=== PATIENT | female | born 1985 | race Two or more races ===

== ENCOUNTER 2016-07-24 20:03 | Emergency (ER) | payer OTHER ==
[2016-07-24 20:30] VITALS: BP 143/93
[2016-07-24] MEDS ORDERED: ESCI20TA PO (20:39)
[2016-07-24] MEDS ORDERED: ALPR0.5T PO (20:39)
--- NOTE | 2016-07-24 20:50 | ED.ADGEN ---
Adult General HPI HPI Patient is a 31-year-old female presents emergency department complaining of anxiety attack. Patient has a history of anxiety and depression. She was previously on Lexapro is been off that for some time. Last time she required any Xanax was several weeks ago but she is currently out of it. She does have a recent increase in stress including the trigger today of leaving her . Review of Systems Review of Systems Constitutional: Denies fever or chills [] Eyes: Denies change in visual acuity, redness, or eye pain [] HENT: Denies nasal congestion or sore throat [] Respiratory: Denies cough or shortness of breath [] Cardiovascular: No additional information not addressed in HPI [] GI: Denies abdominal pain, nausea, vomiting, bloody stools or diarrhea [] : Denies dysuria or hematuria [] Musculoskeletal: Denies back pain or joint pain [] Integument: Denies rash or skin lesions [] Neurologic: Denies headache, focal weakness or sensory changes [] Endocrine: Denies polyuria or polydipsia [] Current Medications Current Medications Current Medications Medications (Trade) Dose Ordered Sig/Geno Start Time Stop Time Status Last Admin Dose Admin Lorazepam (Ativan) 1 mg 1X ONCE 07/24/16 21:00 07/24/16 21:01 Allergies Allergies Allergies Uncoded Allergies Type Severity Reaction Last Updated Verified tape Allergy Unknown 07/24/16 Physical Exam Physical Exam Constitutional: Well developed, well nourished, no acute distress, non-toxic appearance. [] HENT: Normocephalic, atraumatic, bilateral external ears normal, oropharynx moist, no oral exudates, nose normal. [] Eyes: PERRLA, EOMI, conjunctiva normal, no discharge. [] Neck: Normal range of motion, no tenderness, supple, no stridor. [] Cardiovascular:Heart rate regular rhythm, no murmur [] Lungs & Thorax: Bilateral breath sounds clear to auscultation [] Abdomen: Bowel sounds normal, soft, no tenderness, no masses, no pulsatile masses. [] Skin: Warm, dry, no erythema, no rash. [] Back: No tenderness, no CVA tenderness. [] Extremities: No tenderness, no cyanosis, no clubbing, ROM intact, no edema. [] Neurologic: Alert and oriented X 3, normal motor function, normal sensory function, no focal deficits noted. [] Psychologic: Affect normal, judgement normal, mood anxious [] EKG EKG [] Radiology/Procedures Radiology/Procedures [] Course & Med Decision Making Course & Med Decision Making Pertinent Labs and Imaging studies reviewed. (See chart for details) I did give her dose of Ativan here in emergency department. I discharged her home with prescription for Xanax and Lexapro. She is to follow-up with her primary care physician in 2-3 days return emergency department sooner she develops new or worsening symptoms. [] Final Impression Final Impression Anxiety [] Problems: Dragon Disclaimer Dragon Disclaimer This electronic medical record was generated, in whole or in part, using a voice recognition dictation system. VAZQUEZ LIRIANO MD Jul 24, 2016 20:50
[2016-07-24] MEDS ORDERED: LORAZEPAM 1 MG TABLET. PO ONE (21:00)
== END 2016-07-24 20:55 | disposition home or self-care (01) ==
LOC: ER 20:09
DX: F41.9 Anxiety disorder, unspecified (principal); F32.9 Major depressive disorder, single episode, unspecified; Z91.048 Other nonmedicinal substance allergy status
CPT/HCPCS: 99284

== ENCOUNTER 2017-02-14 10:24 | Emergency (ER) | payer OTHER ==
[~2017-02-14] VITALS: Ht 172.7 cm; Wt 81.6 kg
[~2017-02-14 10:24] MED LIST: ALPR0.5T PO; ESCITALOPRAM OX20 MG PO
[2017-02-14] MEDS ORDERED: LIDO:MAALOX 1:1 20 ML SINGLE DOSE PO ONE (11:20)
[2017-02-14] MEDS ORDERED: ALPRAZolam 0.25 MG TABLET PO ONE (11:20)
[2017-02-14] MEDS ORDERED: ONDANSETRON ODT 4 MG TAB.RAPDIS PO ONE (11:30)
[2017-02-14 11:40] LABS: BILIRUBIN,URINE MOD (NEG); CLARITY,URINE TURBID; COLOR,URINE AMBER; GLUCOSE,URINE NEG (NEG)
[2017-02-14 11:41] LABS: BACTERIA,URINE MANY /HPF (0-FEW); NITRITE,URINE NEG (NEG); SQUAMOUS EPITHELIAL CELL,UR MOD /LPF; UROBILINOGEN,URINE 2 mg/dL (0.2 mg/dL); WBC,URINE >40 /HPF (0-4)
--- NOTE | 2017-02-14 11:50 | PHYS DOC ---
General Chief Complaint: CHEST PAIN Stated Complaint: ABD/CHEST/ARM PAIN Time Seen by MD: 10:59 Source: patient, family Exam Limitations: no limitations Problems: History of Present Illness Initial Comments Patient is a 32-year-old female who arrives with family in severe distress with what she states is a panic attack. Patient states she has severe GERD which is exacerbated by her panic attacks. She is currently complaining of severe epigastric pain described as burning, she has burning radiation of her anterior chest with a metallic taste and has had one episode of nonbloody emesis. She also denies any history of coffee- ground emesis or upper GI bleed. She is hyperventilating on arrival in severe distress due to what she is calling a panic attack, she complaining of lip and fingers tingling and numbness. She denies any true chest pain shortness of breath diaphoresis arm or neck discomfort. Her only coronary artery disease risk is tobaccoism. Denies family history of coronary artery disease. She is coached to slow her breathing by the RN are on arrival and receives Xanax 1 mg by mouth as well as a GI cocktail and Zofran IV. Shortly after receiving his medications he pulled out her IV she states this was accidental. Her symptoms were greatly reduced with the aforementioned medications and she calmed down her vital signs in the emergency department were stable. Although she denies any substance abuse the patient's mother offers that she drinks alcohol in great quantities daily. She is repeatedly requesting pain medications and at one time raises her voice exclaiming "can't I just get some fucking pain medication." She was asked to limit the profanity. Timing/Duration: other (last night around midnight) Severity: severe Modifying Factors: improves with medication Associated Symptoms: nausea/vomiting, shortness of breath, other Allergies: Uncoded Allergies: tape (Allergy, Unknown, 07/24/16) Past Medical History Medical History: other (anxiety, depression, severe GERD) Surgical History: noncontributory Social History Smoker: cigarettes Alcohol: other (denies use, however family claims she uses daily) Drugs: other (denies) Review of Systems Constitutional: denies chills, denies diaphoresis, denies fever, denies malaise Respiratory: denies cough, shortness of breath, denies wheezing Cardiovascular: chest pain, denies palpitations, denies syncope Gastrointestinal: see HPI Genitourinary: denies dysuria, denies frequency, denies hematuria Musculoskeletal: denies back pain, denies joint swelling, denies neck pain Psychiatric/Neurological: see HPI, denies headache, denies numbness, denies paresthesia Physical Exam General Appearance: WD/WN, severe distress (inappropriate, slurs) Eyes: bilateral eye PERRL, bilateral eye EOMI, bilateral eye other ( conjunctivae injected) Ear, Nose, Throat: hearing grossly normal, normal ENT inspection, normal pharynx Neck: non-tender, supple Respiratory: chest non-tender, lungs clear, normal breath sounds Cardiovascular: normal peripheral pulses, regular rate, rhythm Gastrointestinal: normal bowel sounds, non tender, soft, no organomegaly Back: no CVA tenderness, no vertebral tenderness Extremities: non-tender, normal inspection 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 Urinalysis grossly positive for products of infection culture sent. Urine drug screen negative, alcohol level is 42 I discussed findings with the patient and she requests immediate discharge once she finds out no further pain medications in the form of opiates will be given due to her intoxication. I discussed substance abuse and advised her to seek help. Rocephin IM given to ensure that she didn't throw it up and Bactrim DS/ Pyridium prescriptions were given. She left with someone driving her home. Departure Time of Disposition: 12:22 Disposition: 01 HOME, SELF-CARE Diagnosis: Alcohol Intoxication, UTI, Anxiety, GERD Condition: IMPROVED Patient Instructions: Alcohol Intoxication, [id number], Alcoholic Gastritis- Brief, Urinary Tract Infection, [id number] Additional Instructions: Discontinue alcohol abuse, seeking medical assistance if necessary. Alcoholics Anonymous, 21 meetings in 21 days. [place] diet, avoid fried, fatty, spicy, tobacco, and alcohol. Aggressive hydration with Gatorade or water. No driving or operating machinery while intoxicated. Follow-up with your doctor regarding anxiety and treatment thereof. Prescription: Bactrim DS, Pyridium, Zofran ODT Follow-up with your doctor in 7-10 days for recheck and urine culture results. Return to ED with new or changing symptoms. VERN TRUJILLO DO Feb 14, 2017 11:50
[2017-02-14 12:10] LABS: AMPHETAMINE/METHAMPHETAMINE NEG (NEG); BARBITURATES NEG (NEG); BENZODIAZEPINES NEG (NEG); COCAINE NEG (NEG)
[2017-02-14 12:11] LABS: CANNABINOIDS NEG (NEG); METHADONE NEG (NEG); OPIATES NEG (NEG); PHENCYCLIDINE NEG (NEG)
[2017-02-14] MEDS ORDERED: cefTRIAXone IM 1 GM VIAL IM ONE (12:30)
[2017-02-14] MEDS ORDERED: PHENAZOPYRIDINE 100 MG TABLET. PO ONE (12:30)
[2017-02-14 12:36] VITALS: BP 142/85
--- NOTE | 2017-02-14 22:43 | EKG ---
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
== END 2017-02-14 12:50 | disposition home or self-care (01) ==
LOC: ER 10:24
DX: F10.129 Alcohol abuse with intoxication, unspecified (principal); N39.0 Urinary tract infection, site not specified; F41.9 Anxiety disorder, unspecified; K21.9 Gastro-esophageal reflux disease without esophagitis; F32.9 Major depressive disorder, single episode, unspecified; F17.210 Nicotine dependence, cigarettes, uncomplicated; Z91.048 Other nonmedicinal substance allergy status
CPT/HCPCS: 36415; 80307; 81001; 81025; 87086; 93005; 96372; 99285; G0480; J0696; Q0162; G0479

== ENCOUNTER 2020-08-07 00:09 | Observation (INO) | payer BC, OTHER ==
[~2020-08-07] VITALS: Ht 172.7 cm; Wt 99.5 kg
--- NOTE | 2020-08-07 00:32 | PHYS DOC ---
Past History Past Medical History: Alcoholism, Anxiety, Depression, Ovarian Cyst, Pancreatitis Past Surgical History: Past Surgical History Pancreatic stent placement -July 2020 Smoking: Cigarettes Alcohol Use: Sober Drug Use: None General Adult EDM: Chief Complaint: HYPERGLYCEMIA HPI: HPI: ".. I have a hx of chronic pancreatitis ..and getting obstructive stones..it all started after a depression episode.. and about 3 year binge on alcohol use.... I have not drank for over 2 years... But I have had pancreas problems ever since... About 2 weeks ago they placed a stent in my pancreas.. Down at [facility] on the [address]... After that stent placement.. I developed diabetes or hyperglycemia because of the inflammation... And since that time have been having trouble with high blood sugars... The insurance company would not fill my lispro.. Because the way these prescription was written ... I have not been able to keep my sugars controlled by diet..." Patient is a 35 year old female who presents with above hx and complaints of hyperglycemia after a stenting of her pancreas 2 weeks ago. Patient is a longstanding history of chronic pancreatitis after a period of heavy alcohol use. Patient does not use alcohol for the last 2 years. Patient denies any other illicit drugs. Patient normally follows at [facility] endocrinology. Patient also follows with primary care [place]. Patient has past medical history of atypical chest pain, panic attacks, GERD, GI bleeds, alcohol abuse and pancreatitis. Patient denies any history immunosuppression. No history of travel. No history of specific ill contacts. No history of trauma. Patient normally follows with in the endocrine clinic at [facility]. No recent fever or chills. Patient does continue to smoke. Review of Systems: Review of Systems: Constitutional: Denies fever or chills Eyes: Denies change in visual acuity HENT: Denies nasal congestion or sore throat Respiratory: Denies cough or shortness of breath Cardiovascular: Denies chest pain or edema GI: Complains of moderate mid abdominal pain, nausea,. Denies vomiting, bloody stools or diarrhea : Denies dysuria Musculoskeletal: Denies back pain or joint pain Integument: Denies rash Neurologic: Denies headache, focal weakness or sensory changes Endocrine: Complains of polyuria or polydipsia Lymphatic: Denies swollen glands Psychiatric: History of depression and anxiety Family History: Family History: Noncontributory to presentation Current Medications: Current Meds: See nursing for home meds Allergies: Allergies: Allergies Uncoded Allergies Type Severity Reaction Last Updated Verified tape Allergy Unknown 07/24/16 Physical Exam: PE: Constitutional: Moderate acute distress, non-toxic appearance. [] HENT: Normocephalic, atraumatic, bilateral external ears normal, oropharynx dry, no oral exudates, nose normal. [] Eyes: PERRLA, EOMI, conjunctiva normal, no discharge. [] Neck: Normal range of motion, no tenderness, supple, no stridor. [] Cardiovascular: Tachycardia heart rate regular rhythm, no murmur [] Lungs & Thorax: Bilateral breath sounds equal apex with scattered wheezes on auscultation [] Abdomen: Bowel sounds decreased, soft, epigastric to mid abdomen with right upper quadrant tenderness, no masses, no pulsatile masses. [] Rebound to mid abdomen and epigastric area. Old surgery scar. Skin: Warm, dry, no erythema, no rash. Poor turgor Back: No tenderness, no CVA tenderness. [] Extremities: No tenderness, no cyanosis, no clubbing, ROM intact, no edema. [] Neurologic: Alert and oriented X 3, Pt. moves all extremities on request, does have distal sensory,, no focal deficits noted. [] Psychologic: Affect anxious, judgement normal, mood depressed. No suicidal ideation. EKG: EKG: My interpretation EKG shows a sinus rhythm at 96 bpm. Does have some bimodal P waves in the left leads. Does have leftward axis. Does have a right bundle branch block. Abnormal EKG however no findings acute STEMI of contralateral changes. [] Radiology/Procedures: Radiology/Procedures: [][address] [address] IMAGING REPORT Signed PATIENT: OPHELIA DAVIS AACCOUNT: [id number] : 1985 LOCATION: ER AGE: 35 SEX: F EXAM STATUS: REG ER ORD. PHYSICIAN: LAVELL ANTHONY MD REASON: pain PROCEDURE: ACUTE ABDOMEN SERIES XR ABDOMEN COMP ACUTE History: Reason: pain / Spl. Instructions: / History: Technique: Upright and supine views the abdomen. Comparison: None. Findings: No consolidation or pleural effusion. Normal heart size. No pneumothorax. No pneumoperitoneum. TIPS stent noted. Surgical clips right upper quadrant. A potential pancreatic duct stent noted. Mild small bowel gas. Air and stool throughout the colon. Large proximal colonic stool burden. Impression: 1. Nonobstructed bowel gas pattern. 2. Large colonic stool burden. 3. Potential pancreatic duct stent. Recommend correlation with surgical history. Electronically signed by: Yifan Garcia DO (08/07/2020 1:53 AM) [facility] DICTATED AND SIGNED BY: YIFAN GARCIA DO DATE: 08/07/20150 CC: LAVELL ANTHONY MD; VINNIE TEAGUE ~MTH0 0 Heart Score: C/O Chest Pain: N/A HEART Score for Chest Pain: HEART Score for Chest Pain Response (Comments) Value History Moderately Suspicious 1 ECG Nonspecific Repolarizatio 1 Age < 45 0 Risk Factors 1 or 2 Risk Factors 1 Troponin < Normal Limit 0 Total 3 Risk Factors: Risk Factors: DM, Current or recent (<one month) smoker, HTN, HLP, family history of CAD, obesity. Risk Scores: Score 0 - 3: 2.5% MACE over next 6 weeks - Discharge Home Score 4 - 6: 20.3% MACE over next 6 weeks - Admit for Clinical Observation Score 7 - 10: 72.7% MACE over next 6 weeks - Early Invasive Strategies Course & Med Decision Making: Course & Med Decision Making Pertinent Labs and Imaging studies reviewed. (See chart for details) Discussed presentation, testing and treatment plan with . Requests patient be admitted to his service and placed on glucose commander protocol. Impression: 1. Past history of alcohol abuse= alcohol level 0 at this admission 2. History of chronic pancreatitis 3. Diabetes =glucose 608 Gap 10 4. Dehydration 5. History of anxiety 6. History of depression [] Dragon Disclaimer: Dragon Disclaimer: This electronic medical record was generated, in whole or in part, using a voice recognition dictation system. Departure Departure: Referrals: VINNIE TEAGUE (PCP) Vee Disclaimer This chart was dictated in whole or in part using Voice Recognition software in a busy, high-work load, and often noisy Emergency Department environment. It may contain unintended and wholly unrecognized errors or omissions. LAVELL ANTHONY MD Aug 07, 2020 00:32
[2020-08-07] MEDS ORDERED: INSULIN REGULAR 100 UNIT/ML 3ML VIAL. IV ONE (01:00)
[2020-08-07] MEDS ORDERED: FAMOTIDINE 20 MG/2 ML VIAL IVP ONE (01:00)
[2020-08-07] MEDS ORDERED: INSULIN REGULAR VIAL 100 UNIT in IV NORMAL SALINE 100ML 100 ML IV ONE ×2 (01:00→11:00)
[2020-08-07] MEDS ORDERED: ONDANSETRON PF 4 MG/2 ML VIAL. IVP ONE (01:00)
[2020-08-07] MEDS ORDERED: IV NORMAL SALINE 1,000ML 1,000 ML IV SCH ×2 (01:00→03:30)
[2020-08-07] MEDS ORDERED: KETOROLAC 30 MG/ML VIAL. IVP ONE (01:00)
[2020-08-07 01:15] LABS: BASO % 1 % (0-3); EOS # 0.1 x10^3/uL (0.0-0.7); EOS % 1 % (0-3); HEMATOCRIT 44.7 % (36.0-47.0); LYMPH # 1.8 x10^3/uL (1.0-4.8); LYMPH % 28 % (24-48); MEAN CORPUSCULAR HEMOGLOBIN 31 pg (25-35); MEAN CORPUSCULAR HGB CONC 34 g/dL (31-37); MEAN CORPUSCULAR VOLUME 91 fL (79-100); MONO # 0.4 x10^3/uL (0.0-1.1); MONO % 7 % (0-9); NEUT # 4.1 x10^3uL (1.8-7.7); NEUT % 64 % (31-73); PLATELET COUNT 124 x10^3/uL (140-400); RED BLOOD COUNT 4.89 x10^6/uL (3.50-5.40); RED CELL DISTRIBUTION WIDTH 13.9 % (11.5-14.5); WHITE BLOOD COUNT 6.5 x10^3/uL (4.0-11.0)
[2020-08-07] MEDS ORDERED: IV NORMAL SALINE 100ML 100 ML ONE (01:15)
[2020-08-07 01:23] LABS: BILIRUBIN,URINE NEG (NEG); CLARITY,URINE CLEAR; COLOR,URINE YELLOW; GLUCOSE,URINE >=1000 mg/dL (NEG); NITRITE,URINE NEG (NEG)
[2020-08-07 01:24] LABS: BACTERIA,URINE 0 /HPF (0-FEW); SQUAMOUS EPITHELIAL CELL,UR FEW /LPF; WBC,URINE OCC /HPF (0-4)
[2020-08-07 01:28] LABS: AMPHETAMINE/METHAMPHETAMINE NEG (NEG); BARBITURATES NEG (NEG); BENZODIAZEPINES NEG (NEG); CANNABINOIDS NEG (NEG); COCAINE NEG (NEG); METHADONE NEG (NEG); OPIATES NEG (NEG); PHENCYCLIDINE NEG (NEG)
[2020-08-07 01:44] LABS: ALBUMIN 3.4 g/dL (3.4-5.0); CALCIUM 9.5 mg/dL (8.5-10.1); CREATININE 0.9 mg/dL (0.6-1.0); DIRECT BILIRUBIN 0.1 mg/dL (0.0-0.2); GFR 71.3; POTASSIUM 4.6 mmol/L (3.5-5.1); TOTAL BILIRUBIN 0.5 mg/dL (0.2-1.0); TOTAL PROTEIN 8.7 g/dL (6.4-8.2)
--- NOTE | 2020-08-07 01:56 | RAD ---
XR ABDOMEN COMP ACUTE History: Reason: pain / Spl. Instructions: / History: Technique: Upright and supine views the abdomen. Comparison: None. Findings: No consolidation or pleural effusion. Normal heart size. No pneumothorax. No pneumoperitoneum. TIPS s tent noted. Surgical clips right upper quadrant. A potential pancreatic duct stent noted. Mild small bowel gas. Air and stool throughout the colon. Large proximal colonic stool burden. Impression: 1. Nonobstructed bowel gas pattern. 2. Large colonic stool burden. 3. Potential pancreatic duct stent. Recommend correlation with surgical history. Electronically signed by: Yifan Garcia DO (08/07/2020 1:53 AM) [facility]
[2020-08-07] MEDS ORDERED: IV RINGERS SOLUTION,LACTATED 1,000 ML IV ONE (02:15)
[2020-08-07] MEDS ORDERED: ACETAMINOPHEN 325 MG TABLET PO PRN (02:15)
[2020-08-07] MEDS ORDERED: IV NORMAL SALINE 1,000ML 1,000 ML IV ONE (02:15)
[2020-08-07] MEDS ORDERED: ONDANSETRON PF 4 MG/2 ML VIAL. IVP PRN (02:15)
--- NOTE | 2020-08-07 02:36 | NUR ---
The patient, OPHELIA DAVIS, 35 y/o, F admitted by DANY KAHN MD, was given written information regarding hospital policies, unit procedures and contact persons. Valuables were checked and logged. Pt is concerned about her kids during her stay since it is easter today. Pt is wanting to go home and states, "I am hopefully going to go home today." Call light at bedside. Will continue to monitor.
[2020-08-07 02:57] VITALS: BP 162/93
[2020-08-07] MEDS: MORPHINE SULFATE 4 MG/ML DISP.SYRIN. IV PRN ×3 (03:38→09:26)
--- NOTE | 2020-08-07 06:25 | EKG ---
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
[2020-08-07] MEDS ORDERED: VENL37.5 PO (06:46)
[2020-08-07] MEDS ORDERED: HYDR2TAB31 PO (06:46)
[2020-08-07] MEDS ORDERED: PANT40TA3 PO (06:46)
[2020-08-07] MEDS ORDERED: INSU100I13 SQ (06:46)
[2020-08-07] MEDS ORDERED: LIPA1CAP4 PO (06:46)
[2020-08-07] MEDS ORDERED: RIFA550T4 PO (06:46)
[2020-08-07] MEDS ORDERED: TRAZ300T2 PO (06:46)
[2020-08-07] MEDS ORDERED: GABA-586 PO (06:46)
[2020-08-07] MEDS ORDERED: MIRT30TA3 PO (06:46)
[2020-08-07] MEDS ORDERED: LIDO700A21 TP (06:46)
[2020-08-07 09:16] VITALS: BP 92/52
--- NOTE | 2020-08-07 12:19 | HP ---
ADMIT DATE: 08/07/2020 ATTENDING PHYSICIAN: Dr. Kahn. CHIEF COMPLAINT: High blood sugars. HISTORY OF PRESENT ILLNESS: The patient is a 35-year-old female with known pancreatic insufficiency. Recently, she had a pancreatic stent placed for recurrent stones. She has been on Creon. There is a remote history of binge drinking several years ago; she has quit drinking. She was prescribed insulin, Humalog and Lantus. Unfortunately, she was unable to get it filled due to insurance purposes. Therefore, on admission, her sugar was 600. She was tired. She had a dry mouth and polyuria. Amazingly, her anion gap was actually adequate. She was admitted with uncontrolled diabetes. PAST MEDICAL HISTORY: Significant for chronic alcoholism. She has pancreatic insufficiency, underlying depression along with gastroesophageal reflux disease and chronic pain syndrome. CURRENT MEDICATIONS: Includes Neurontin 300 mg t.i.d., Dilaudid 2 mg tablets, Ultram, venlafaxine, trazodone, Xifaxan, Protonix, Remeron, Creon and Lidoderm patch along with her regular and Lantus insulin. ALLERGIES: SHE HAS MULTIPLE ALLERGIES INCLUDE ADHESIVE TAPE, FENTANYL, SULFAMETHOXAZOLE, TRIMETHOPRIM AND VANCOMYCIN; REACTION IS UNCLEAR, WHETHER THE VANCOMYCIN IS THE TRUE ALLERGY REMAINS TO BE SEEN. SOCIAL HISTORY: She is a nonsmoker. She has since quit drinking. FAMILY HISTORY: Parents are alive. She is ; has 2 children, a son age 10 with a daughter age 8 in good health. She is currently at home. She is in the process of getting back to the work force. REVIEW OF SYSTEMS: Significant for some polyuria and polydipsia. No COVID exposure. Mild nausea, no vomiting. Pain is manageable with Ultram. All other systems reviewed and turned to be negative. PHYSICAL EXAMINATION: GENERAL: When I saw her, this is a pleasant, alert, young female. INITIAL VITAL SIGNS: Showed a blood pressure 144/83, pulse is 103 and regular, temperature 98.9 degrees Fahrenheit, oxygen saturation 98% on room air. HEENT: Head is without trauma. Pupils are reactive. Sclerae nonicteric. Oropharynx is clear. NECK: Supple, no bruits identified. LUNGS: Clear to auscultation. CARDIOVASCULAR: Showed regular heart tones. No gallops. ABDOMEN: Soft. EXTREMITIES: Without edema. NEUROLOGIC FINDINGS: Focally intact. SKIN: Warm and dry. LABORATORY STUDIES: Admission blood sugar was 608 mg/dL, anion gap was only 10, bicarbonate 23. Creatinine was 0.9 mg/dL. Transaminases are normal. Hemoglobin 15.0 g/dL with white count of 6500. ASSESSMENT: 1. A 35-year-old female with pancreatic insufficiency. 2. Insulin-dependent diabetes with poorly controlled sugars. 3. Noncompliance of meds. 4. Chronic pain syndrome. 5. Pancreatic insufficiency. 6. Remote history of chronic alcoholism. 7. Underlying depression. PLAN: 1. Observation status admission. 2. Initial glucose stabilizer protocol initiated. 3. Advance diet as tolerated. 4. Serial chemistries. DANY KAHN MD DR: NANETTE/jeanne JOB#: [id number] / [id number] VINNIE Ayala
--- NOTE | 2020-08-07 14:42 | DS ---
DATE OF DISCHARGE: 08/07/2020 ATTENDING PHYSICIAN: Dr. Kahn. FINAL DISCHARGE DIAGNOSES: 1. Uncontrolled diabetes due to noncompliance of meds. 2. Insulin diabetes mellitus. 3. Pancreatic insufficiency. 4. Remote history of chronic alcoholism. 5. Underlying depression with anxiety. 6. Mild dehydration, resolved. HISTORY OF PRESENT ILLNESS: The patient is a 35-year-old female with a complicated history. She has had pancreatic insufficiency, recently diagnosed with type 2 diabetes. She was prescribed Humalog insulin Lantus. She has not been able to get it filled. Sugars were elevated. On admission, her blood sugar was 608 mg/dL. Polyuria and polydipsia was identified. No recent COVID exposure. She was not acidotic. Her bicarbonate level was 23 with a gap of 10. She was admitted then for management of blood sugars. PHYSICAL EXAMINATION: Please see the dictated note. PERTINENT LABORATORY AND X-RAY STUDIES: Admission blood sugar 608 mg/dL. Subsequent sugars came down to 224, 182, 100, 103 and 115 respectively. Urinalysis was clear, greater than 1000 glucose. Toxicology screen was negative. Ethyl alcohol level is normal. Hemoglobin maintained at 15.0 g/dL with a white count of 6500. Creatinine was 0.9 mg/dL. COURSE IN THE HOSPITAL: The patient was admitted. She was started on glucose stabilizer, then switched to Accu-Cheks, sliding scale and IV hydration. She did well. Sugars came down to the low 100s. Her diet was advanced. She was eating some solid foods without any nausea. She was ready for discharge. At this time, I wrote her scripts for Humalog insulin. She is instructed to count her carbohydrates and administer Humalog prior to each meal and 30 units of Lantus at bedtime. Other home meds are unchanged, they include the following: She should continue her Neurontin, insulin, pancreatic enzyme in the form of Creon, Remeron, Protonix, Xifaxan, trazodone and Effexor doses unchanged. I did write her a script for some extra Ultram 100 mg p.o. q.6 p.r.n. She will follow up with Halina Betancourt next week. She will be calling her for an appointment. She was discharged then from our hospital in stable condition with explicit instructions and followup care. DANY KAHN MD DR: NANETTE/jeanne JOB#: [id number] / [id number] HALINA Ayala
== END 2020-08-07 09:35 | disposition home or self-care (01) ==
LOC: ER 00:09 → 1 SOUTH 02:29 → INTOOBSV 02:29
PROVIDERS: ADMIT Hospitalist; ATTEND Hospitalist
DX: K86.89 Other specified diseases of pancreas (principal); E11.65 Type 2 diabetes mellitus with hyperglycemia; G89.4 Chronic pain syndrome; E86.0 Dehydration; F10.20 Alcohol dependence, uncomplicated; F41.9 Anxiety disorder, unspecified; F32.9 Major depressive disorder, single episode, unspecified; K21.9 Gastro-esophageal reflux disease without esophagitis; F17.210 Nicotine dependence, cigarettes, uncomplicated; Z91.14 Patient's other noncompliance with medication regimen; Z87.442 Personal history of urinary calculi; Z79.4 Long term (current) use of insulin; Z98.891 History of uterine scar from previous surgery; Z98.890 Other specified postprocedural states
CPT/HCPCS: 36415; 74022; 80048; 80076; 80307; 81001; 81025; 82150; 82550; 82947; 83690; 84484; 85025; 85610; 85730; 93005; 96365; 96375; 96376; 99285; G0378; G0480; J1815; J1885; J2270; J2405; J7030; 96361; 96366; 96374; G0379

== ENCOUNTER 2020-10-11 22:35 | Observation (INO) | payer BC ==
[~2020-10-11] VITALS: Ht 172.7 cm; Wt 101.7 kg
[~2020-10-11 22:35] MED LIST changes: +GABA-586 PO; +HYDR2TAB31 PO; +INSU100I13 SQ; +LIDO700A21 TP; +LIPA1CAP4 PO; +MIRT-8 PO; +PANT40TA3 PO; +RIFA550T4 PO; +TRAZ300T2 PO; +VENL37.5 PO
--- NOTE | 2020-10-11 22:38 | PHYS DOC ---
Past History Past Medical History: Alcoholism, Anxiety, Depression, Ovarian Cyst, Pancreatitis Additional Past Medical Histor: LIVER DISEASE Past Surgical History: Additional Past Surgical Histo: PANCREATIC STENTS, LYPHMECTOMY Smoking: Cigarettes Alcohol Use: Sober Drug Use: None General Adult EDM: Chief Complaint: HYPERTENSION HPI: HPI: Patient is a 35 year old female who presents with above hx and complaints of hypertension Review of Systems: Review of Systems: Constitutional: Denies fever or chills Eyes: Denies change in visual acuity HENT: Denies nasal congestion or sore throat Respiratory: Denies cough or shortness of breath Cardiovascular: Denies chest pain or edema GI: Denies abdominal pain, nausea, vomiting, bloody stools or diarrhea : Denies dysuria Musculoskeletal: Denies back pain or joint pain Integument: Denies rash Neurologic: Denies headache, focal weakness or sensory changes Endocrine: Denies polyuria or polydipsia Lymphatic: Denies swollen glands Psychiatric: Denies depression or anxiety Allergies: Allergies: Allergies Coded Allergies Type Severity Reaction Last Updated Verified adhesive tape Allergy Intermediate 08/07/20 Yes fentanyl Allergy Unknown 08/07/20 Yes sulfamethoxazole Allergy Unknown 08/07/20 Yes trimethoprim Allergy Unknown 08/07/20 Yes vancomycin Allergy Unknown 08/07/20 Yes Physical Exam: PE: Constitutional: Well developed, well nourished, no acute distress, non-toxic appearance. [] HENT: Normocephalic, atraumatic, bilateral external ears normal, oropharynx moist, no oral exudates, nose normal. [] Eyes: PERRLA, EOMI, conjunctiva normal, no discharge. [] Neck: Normal range of motion, no tenderness, supple, no stridor. [] Cardiovascular:Heart rate regular rhythm, no murmur [] Lungs & Thorax: Bilateral breath sounds clear to auscultation [] Abdomen: Bowel sounds normal, soft, no tenderness, no masses, no pulsatile masses. [] Skin: Warm, dry, no erythema, no rash. [] Back: No tenderness, no CVA tenderness. [] Extremities: No tenderness, no cyanosis, no clubbing, ROM intact, no edema. [] Neurologic: Alert and oriented X 3, normal motor function, normal sensory function, no focal deficits noted. [] Psychologic: Affect normal, judgement normal, mood normal. [] EKG: EKG: [] Radiology/Procedures: Radiology/Procedures: [] Heart Score: Risk Factors: Risk Factors: DM, Current or recent (<one month) smoker, HTN, HLP, family history of CAD, obesity. Risk Scores: Score 0 - 3: 2.5% MACE over next 6 weeks - Discharge Home Score 4 - 6: 20.3% MACE over next 6 weeks - Admit for Clinical Observation Score 7 - 10: 72.7% MACE over next 6 weeks - Early Invasive Strategies Course & Med Decision Making: Course & Med Decision Making Pertinent Labs and Imaging studies reviewed. (See chart for details) [] Dragon Disclaimer: Dragon Disclaimer: This electronic medical record was generated, in whole or in part, using a voice recognition dictation system. Departure Departure: Referrals: VINNIE TEAGUE (PCP) LAVELL ANTHONY MD Oct 11, 2020 22:38
[2020-10-11] MEDS ORDERED: CONTRAST GIVEN. MC PRN (23:15)
[2020-10-11] MEDS ORDERED: IOHEXOL 240 MG/ML 50ML VIAL. ONE (23:21)
[2020-10-11] MEDS ORDERED: IOHEXOL 300 MG/ML 75 ML VIAL. IV ONE (23:30)
[2020-10-11] MEDS ORDERED: ONDANSETRON PF 4 MG/2 ML VIAL. IVP ONE (23:30)
[2020-10-11] MEDS ORDERED: IV RINGERS SOLUTION,LACTATED 1,000 ML IV SCH (23:30)
[2020-10-11] MEDS ORDERED: INSULIN REGULAR VIAL 100 UNIT in IV NORMAL SALINE 100ML 100 ML IV ONE (23:30)
[2020-10-11] MEDS ORDERED: KETOROLAC 30 MG/ML VIAL. IVP ONE (23:30)
[2020-10-11] MEDS ORDERED: FAMOTIDINE 20 MG/2 ML VIAL IVP ONE (23:30)
[2020-10-11] MEDS ORDERED: INSULIN REGULAR 100 UNIT/ML 3ML VIAL. IV ONE (23:30)
[2020-10-11] MEDS ORDERED: IV NORMAL SALINE 1,000ML 1,000 ML IV SCH (23:30)
[2020-10-12 00:03] LABS: BASO % 0 % (0-3); EOS # 0.1 x10^3/uL (0.0-0.7); EOS % 1 % (0-3); HEMATOCRIT 38.4 % (36.0-47.0); LYMPH # 1.4 x10^3/uL (1.0-4.8); LYMPH % 23 % (24-48); MEAN CORPUSCULAR HEMOGLOBIN 31 pg (25-35); MEAN CORPUSCULAR HGB CONC 34 g/dL (31-37); MEAN CORPUSCULAR VOLUME 90 fL (79-100); MONO # 0.4 x10^3/uL (0.0-1.1); MONO % 6 % (0-9); NEUT # 4.5 x10^3uL (1.8-7.7); NEUT % 70 % (31-73); PLATELET COUNT 100 x10^3/uL (140-400); RED BLOOD COUNT 4.26 x10^6/uL (3.50-5.40); RED CELL DISTRIBUTION WIDTH 13.7 % (11.5-14.5); WHITE BLOOD COUNT 6.4 x10^3/uL (4.0-11.0)
[2020-10-12 00:06] LABS: U PREG PATIENT NEGATIVE (NEG)
--- NOTE | 2020-10-12 00:10 | EKG ---
[address] [address] Test Date: 2020-10-11 Test Time: 23:10:20 Pat Name: OPHELIA DAVIS Department: Room: Gender: F [employer]: : 1985 Requested By: LAVELL ANTHONY Order Number: [id number] Reading MD: Measurements Intervals [place] Rate: 97 P: 18 MN: 132 QRS: 13 QRSD: 94 T: 34 QT: 348 QTc: 446 Interpretive Statements SINUS RHYTHM NORMAL ECG RI6.02 No previous ECG available for comparison
[2020-10-12 00:13] LABS: CALCIUM 9.1 mg/dL (8.5-10.1); CREATININE 0.9 mg/dL (0.6-1.0); GFR 71.3; POTASSIUM 3.4 mmol/L (3.5-5.1)
[2020-10-12 00:17] LABS: ALBUMIN 3.3 g/dL (3.4-5.0); DIRECT BILIRUBIN 0.1 mg/dL (0.0-0.2); TOTAL BILIRUBIN 0.4 mg/dL (0.2-1.0)
--- NOTE | 2020-10-12 00:45 | RAD ---
XR ABDOMEN COMP ACUTE History: Reason: Abdomen pain / Spl. Instructions: / History: Technique: Upright and supine views of the abdomen. Comparison: August 07, 2020 Findings: No consolidation or pleural effusion. Normal heart size. No pneumothorax. No pneumoperitoneum. TIPS stent noted. Pancreatic stents noted. Surgical clips right upper quadrant. Mild small bowel gas. Air and stool throughout the colon. Mild colonic stool burden. Moderate pubic symphysis DJD. Impression: 1. Nonobstructed bowel gas pattern. Electronically signed by: Yifan Garcia DO (10/12/2020 12:42 AM) [facility]
[2020-10-12 00:48] LABS: BACTERIA,URINE 0 /HPF (0-FEW); BILIRUBIN,URINE NEG (NEG); CLARITY,URINE CLEAR; COLOR,URINE YELLOW; GLUCOSE,URINE >=1000 mg/dL (NEG); NITRITE,URINE NEG (NEG); RBC,URINE 0 /HPF (0-2); SQUAMOUS EPITHELIAL CELL,UR OCC /LPF; UROBILINOGEN,URINE 0.2 mg/dL (0.2 mg/dL)
[2020-10-12 00:49] LABS: WBC,URINE OCC /HPF (0-4)
[2020-10-12 00:52] LABS: BARBITURATES NEG (NEG); BENZODIAZEPINES NEG (NEG); CANNABINOIDS NEG (NEG); COCAINE NEG (NEG); METHADONE NEG (NEG); OPIATES NEG (NEG); PHENCYCLIDINE NEG (NEG)
[2020-10-12 00:53] LABS: AMPHETAMINE/METHAMPHETAMINE NEG (NEG)
[2020-10-12] MEDS ORDERED: MORPHINE SULFATE 10 MG/ML SYRINGE. ONE (01:53)
[2020-10-12 03:45] VITALS: BP 128/82
--- NOTE | 2020-10-12 05:59 | RAD ---
CT ABDOMEN+PELVIS W History: Reason: Abdomen pain, Hx: Liver failure, cholecystectomy Omni 300 75cc / Spl. Instructions: / History: Technique: After the administration of intravenous contrast, CT imaging was performed of the abdomen and pelvis. Multiplanar images are reviewed. Exposure: One or more of the following individualized dose reduction techniques were utilized for thi s examination: 1. Automated exposure control 2. Adjustment of the mA and/or kV according to patient size 3. Use of iterative reconstruction technique. Comparison: None Findings: Lower chest: No consolidation or pleural effusion. Abdomen and pelvis: TIPS stent noted. Hepatomegaly. Enlarged spleen measures 15.8 cm. Prior cholecyst ectomy. The adrenal glands are unremarkable. Posterior gastric fundus diverticulum is noted. Upper ab dominal collateral vessels. Thrombosed right portal vein branches. Patent main portal vein. Pancreatic calcifications. Mild peripancreatic fat stranding. Pancreatic stent noted. No pancreatic d uctal dilatation. No peripancreatic fluid collections. No hydronephrosis. Punctate nonobstructing left inferior renal calculus. Normal appendix. Mid to distal colonic decompression with wall thickening. Multiple small mesenteric and retroperitoneal lymph nodes. Several right ovarian follicles noted. No ascites. No pneumoperitone um. No pneumatosis. No evidence of bowel obstruction. Oral contrast opacifies to the level of the pro ximal small bowel. Bones: No pathologic osseous lesions. Impression: 1. Mild peripancreatic fat stranding with pancreatic calcifications, may represent acute on chronic pancreatitis. Pancreatic stent noted. 2. Right pleural vein branch thrombosis. Patent TIPS stent. 3. Hepatosplenomegaly with upper abdominal varices. 4. Mid to distal colonic wall thickening with nondistention, may relate to passive venous congestion . Correlate for colitis. Electronically signed by: Yifan Garcia DO (10/12/2020 1:55 AM) [facility]
[2020-10-12] MEDS ORDERED: PROCHLORPERAZINE 10 MG/2 ML VIAL. IM PRN (07:00)
[2020-10-12] MEDS ORDERED: PROCHLORPERAZINE 10 MG/2 ML VIAL. IV ONE (07:00)
[2020-10-12] MEDS ORDERED: IV RINGERS SOLUTION,LACTATED 1,000 ML IV SCH (07:00)
[2020-10-12] MEDS ORDERED: DEXTROSE 50% 25 GM / 50ML DISP.SYRIN. IV PRN (07:00)
[2020-10-12] MEDS ORDERED: MORPHINE SULFATE 4 MG/ML DISP.SYRIN. IV PRN ×2 (07:00)
[2020-10-12] MEDS: SUCRALFATE 1 GM TABLET. PO SCH ×2 (07:30→10:39)
[2020-10-12] MEDS ORDERED: INSULIN LISPRO 300 UNITS/3 ML VIAL. SQ SCH (08:00)
[2020-10-12] MEDS ORDERED: FAMOTIDINE 20 MG/2 ML VIAL IVP SCH (09:00)
[2020-10-12] MEDS ORDERED: HYDROmorphone 2 MG TABLET PO PRN (09:15)
--- NOTE | 2020-10-12 09:53 | DS ---
DATE OF DISCHARGE: 10/12/2020 ATTENDING PHYSICIAN: Dr. Osorio FINAL DISCHARGE DIAGNOSES: 1. Abdominal pain. 2. Mild pancreatitis. 3. Chronic pancreatitis. 4. Cirrhosis of the liver. 5. Portal hypertension with varices. 6. History of transjugular intrahepatic portosystemic shunt procedure. 7. Type 2 diabetes. 8. Pancreatic enzyme insufficiency. 9. Remote history of alcoholism. HISTORY AND PHYSICAL: The patient is a 35-year-old female well known to us from previous admissions. She has had chronic pancreatitis. She was admitted with mild symptoms of pancreatitis. CT evidence of pancreatic stranding and inflammation. Ironically amylase and lipase were fairly normal. PHYSICAL EXAMINATION: Please see the dictated note. PERTINENT LABORATORY AND X-RAY STUDIES: Admission CT of the abdomen showed mild peripancreatic stranding, absence of the gallbladder. She has portal hypertension and splenomegaly, no acute findings or obstruction identified. Her hemoglobin was 13.0 g/dL, white count normal at 6400. Chemistry panel unremarkable. Creatinine 0.9 mg/dL. Nonfasting blood sugar 122. Amylase was 29, lipase was 45. Cardiac enzymes were negative for coronary ischemia. COURSE IN THE HOSPITAL: The patient was admitted. She was kept n.p.o., given pain meds and nausea control. She did well. Diet was advanced to full liquids. I recommended a low fat diet for the next 2 days. By the next hospital day, her vital signs were quite stable. She was afebrile. Abdominal exam was benign. She wanted to go home. I felt this is reasonable. I wrote her a script in for Dilaudid 2 mg p.o. q.6 hours p.r.n. pain, #20. Compazine 10 mg every 6 hours p.r.n. pain. Other home meds are unchanged. She should continue her Neurontin, insulin as scheduled, Lidoderm patch, Creon, Remeron, Protonix, Xifaxan, and trazodone and Effexor doses unchanged. She will follow up with Halina Solis as scheduled. The patient was then discharged from our hospital in stable condition with explicit written and followup care. LAKE DR: Mary Ann TID: [id number] CC: SHARI Meza
[2020-10-12] MEDS ORDERED: LIDOCAINE (700MG/PATCH) PATCH. TP PRN (10:00)
[2020-10-12] MEDS ORDERED: rifAXIMin 550 MG TABLET PO SCH (10:00)
[2020-10-12] MEDS ORDERED: GABAPENTIN 300 MG CAPSULE. PO SCH (10:00)
[2020-10-12] MEDS ORDERED: VENLAFAXINE XR 37.5 MG CAP.ER.24H. PO SCH (10:00)
[2020-10-12] MEDS ORDERED: LIPASE/PROTEAS/AMYLAS 10/32/42 CAPSULE.DR. PO SCH (11:30)
[2020-10-12] MEDS ORDERED: IPRATRPIUM/ALBUTEROL 0.5/2.5MG 3 ML NEBU. NEB SCH (12:00)
--- NOTE | 2020-10-12 12:50 | HP ---
ATTENDING PHYSICIAN: ____. CHIEF COMPLAINT: Abdominal pain and nausea. HISTORY OF PRESENT ILLNESS: The patient is a 35-year-old female well known to us from multiple previous admissions. She has a longstanding history of alcoholic cirrhosis, portal hypertension and a previous TIPS procedure, 04/2019. She presented with nonspecific abdominal pain, nausea, some elevated blood pressure. No nausea or bloody stools. No hematemesis. Workup in the ED showed evidence of mild pancreatitis with peripancreatic stranding, though pseudocyst identified. Her white count was normal. Troponins were negative and amylase and lipase were not particularly elevated. She was admitted for further treatment and evaluation. PAST MEDICAL HISTORY: Significant for chronic pancreatitis due to her alcohol use. She has quit drinking, it has been 2 years. PAST SURGICAL HISTORY: She has had a TIPS procedure. She has had a previous cholecystectomy. SOCIAL HISTORY: She is a nonsmoker. CURRENT MEDICATIONS: Include the following: She was on rifaximin, Dilaudid, Neurontin, Remeron, trazodone and Effexor. ALLERGIES: SHE HAS ALLERGIES TO FENTANYL, ADHESIVE TAPE, SULFA DRUGS, TRIMETHOPRIM AND VANCOMYCIN. Exact reaction is unclear. FAMILY HISTORY: Noncontributory. REVIEW OF SYSTEMS: Significant for recent birthday alliance party, she has not drank. She is very straightforward. She denied any recent travel, fevers, chills, hematemesis, bloody stools, black tarry stools. All other systems reviewed and turned to be negative. PHYSICAL EXAMINATION: GENERAL: When I saw her, this is a pleasant young female. INITIAL VITAL SIGNS: Showed a blood pressure of 130 systolic. Pulse is regular. She was afebrile. HEENT: Head is without trauma. Pupils are reactive. Sclerae nonicteric. The oropharynx is clear. NECK: Supple, no bruits identified. LUNGS: Otherwise clear. CARDIOVASCULAR: Showed regular heart tones. No gallops. ABDOMEN: Soft. EXTREMITIES: Without edema. There is no guarding or rebound tenderness. NEUROLOGIC: Function focally intact. SKIN: Warm and dry. Urine drug screen was negative. PERTINENT LABORATORY STUDIES: Hemoglobin 13.0 g/dL. Chemistry panel unremarkable. Creatinine 0.9. Nonfasting blood sugar 122. Amylase 29, lipase 46. Cardiac enzymes were negative. ASSESSMENT: 1. A 35-year-old female with chronic pancreatitis with mild early pancreatitis. 2. History of cirrhosis. 3. Portal hypertension. 4. Splenomegaly. 5. Remote history of chronic alcoholism. PLAN: 1. Admit to the inpatient unit. 2. NPO. 3. Pain and nausea control. 4. IV hydration. 5. Advance diet as tolerated. NANETTE/ELIUD/MYRANDA DR: NANETTE/jeanne TID: [id number]
--- NOTE | 2020-10-12 18:41 | EKG ---
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
[2020-10-12] MEDS ORDERED: INSULIN GLARGINE SYRINGE. SQ SCH (21:00)
[2020-10-12] MEDS ORDERED: PANTOPRAZOLE 40 MG TABLET. PO SCH (21:00)
[2020-10-12] MEDS ORDERED: traZODone 150 MG TABLET. PO SCH (21:00)
[2020-10-12] MEDS ORDERED: MIRTAZAPINE 30 MG TABLET PO SCH (21:00)
== END 2020-10-12 11:09 | disposition home or self-care (01) ==
LOC: ER 22:35 → 1 SOUTH 10-12 06:46 → INTOOBSV 10-12 06:46
PROVIDERS: ADMIT Internal Medicine; ATTEND Internal Medicine
DX: K86.1 Other chronic pancreatitis (principal); K70.30 Alcoholic cirrhosis of liver without ascites; I10 Essential (primary) hypertension; E11.9 Type 2 diabetes mellitus without complications; F17.210 Nicotine dependence, cigarettes, uncomplicated; K76.6 Portal hypertension; K85.90 Acute pancreatitis without necrosis or infection, unspecified; R16.1 Splenomegaly, not elsewhere classified; Z90.49 Acquired absence of other specified parts of digestive tract; Z98.891 History of uterine scar from previous surgery; Z79.899 Other long term (current) drug therapy; Z98.890 Other specified postprocedural states
CPT/HCPCS: 36415; 74022; 74177; 80048; 80061; 80076; 80307; 81001; 81025; 82150; 82550; 82947; 83690; 84484; 85025; 93005; 96361; 96372; 96374; 96375; 96376; 99284; G0378; J0780; J1815; J1885; J2270; J2405; J3490; J7030; J7120; Q9967; G0379

== ENCOUNTER 2021-01-02 10:25 | Emergency (ER) | payer BC ==
[~2021-01-02] VITALS: Ht 172.7 cm; Wt 100.2 kg
[2021-01-02] MEDS ORDERED: ONDANSETRON PF 4 MG/2 ML VIAL. IVP ONE (10:45)
[2021-01-02] MEDS ORDERED: IV NORMAL SALINE 1,000ML 1,000 ML IV ONE (10:45)
[2021-01-02] MEDS ORDERED: MORPHINE SULFATE 4 MG/ML DISP.SYRIN. IV ONE (10:45)
[2021-01-02 11:18] LABS: BASO % 1 % (0-3); EOS # 0.1 x10^3/uL (0.0-0.7); EOS % 2 % (0-3); HEMATOCRIT 42.1 % (36.0-47.0); HEMOGLOBIN 14.5 g/dL (12.0-15.5); LYMPH # 1.5 x10^3/uL (1.0-4.8); LYMPH % 27 % (24-48); MEAN CORPUSCULAR HEMOGLOBIN 30 pg (25-35); MEAN CORPUSCULAR HGB CONC 34 g/dL (31-37); MEAN CORPUSCULAR VOLUME 88 fL (79-100); MONO # 0.3 x10^3/uL (0.0-1.1); MONO % 6 % (0-9); NEUT # 3.5 x10^3uL (1.8-7.7); NEUT % 65 % (31-73); PLATELET COUNT 87 x10^3/uL (140-400); RED BLOOD COUNT 4.79 x10^6/uL (3.50-5.40); RED CELL DISTRIBUTION WIDTH 13.7 % (11.5-14.5); WHITE BLOOD COUNT 5.5 x10^3/uL (4.0-11.0)
--- NOTE | 2021-01-02 11:24 | RAD ---
CT of the abdomen pelvis without contrast. HISTORY: Abdominal pain, history of pancreatitis CT abdomen pelvis was done without contrast. Comparison is made with a previous study from May 14. Lung bases are clear. There is no effusion. Patient has a TIPS shot, I cannot evaluate the patency o f the chest. Spleen is generous in size. A focal liver lesion is not identified. Adrenal glands are n ormal. There are calcifications in the pancreas from chronic pancreatitis. The pancreatic duct stent. There is slight haziness about the head of the pancreas and a mild pancreatitis is possible. Pattern is somewhat similar to the prior exam. There is no mass or hydronephrosis in the kidneys. There are punctate calculi in the lower pole of the left kidney. There is no bowel obstruction. There is a trac e of free fluid in the pelvis. Uterus and ovaries are unremarkable, there is a 1.8 cm follicle in the right ovary. Appendix is normal. IMPRESSION: 1. TIPS shunt in the liver. 2. Pancreatic duct stent. 3. Minimal peripancreatic inflammation, mild pancreatitis is possible. 4. Normal appendix. 5. No bowel obstruction. PQRS Compliance Statement: One or more of the following individualized dose reduction techniques were utilized for this examinat ion: 1. Automated exposure control 2. Adjustment of the mA and/or kV according to patient size 3. Use of iterative reconstruction technique Electronically signed by: Michael Godinez MD (01/02/2021 11:22 AM) [facility]
[2021-01-02 11:32] LABS: CALCIUM 8.9 mg/dL (8.5-10.1); CREATININE 0.7 mg/dL (0.6-1.0); GFR 95.2; POTASSIUM 3.9 mmol/L (3.5-5.1)
[2021-01-02 11:39] LABS: ALBUMIN 3.4 g/dL (3.4-5.0); ALBUMIN/GLOBULIN RATIO 0.8 (1.0-1.7); TOTAL BILIRUBIN 0.2 mg/dL (0.2-1.0)
[2021-01-02 11:43] LABS: TOTAL PROTEIN 7.7 g/dL (6.4-8.2)
--- NOTE | 2021-01-02 11:46 | PHYS DOC ---
Past History Past Medical History: Alcoholism, Diabetes, Hypertension, Ovarian Cyst, Pancreatitis, Other Additional Past Medical Histor: PCOS, endometriosis (RICHIE ROQUE APRN) Past Surgical History: Cholecystectomy, , Other Additional Past Surgical Histo: lymph nodectomy from groin; liver and pancreatic stents (RICHIE ROQUE APRN) Smoking: Cigarettes Alcohol Use: Sober Drug Use: None (RICHIE ROQUE APRN) General Adult EDM: Chief Complaint: ABDOMINAL PAIN HPI: HPI: Patient is a 35-year-old female presents with abdominal pain. Patient states that she has a history of chronic pancreatitis and has had pain for the last few weeks. Patient reports that she had tramadol this morning with little relief. Patient states "I have to have a stent placed every 3 months my last one was last June". "My blood sugar this morning was over 600 and I have been havin g trouble keeping it under control". Patient states her last menstrual period was 12/09. Unknown . Patient complaining of nausea and pain. History of pancreatitis, diabetes, hypertension. (RICHIE ROQUE APRN) Review of Systems: Review of Systems: Constitutional: Denies fever or chills Eyes: Denies change in visual acuity HENT: Denies nasal congestion or sore throat Respiratory: Denies cough or shortness of breath Cardiovascular: Denies chest pain or edema GI: Reports abdominal pain and nausea. : Denies dysuria Musculoskeletal: Denies back pain or joint pain Integument: Denies rash Neurologic: Denies headache, focal weakness or sensory changes Endocrine: Denies polyuria or polydipsia Lymphatic: Denies swollen glands Psychiatric: Denies depression or anxiety (RICHIE ROQUE APRN) Current Medications: Current Meds: Current Medications Medications (Trade) Dose Ordered Sig/Geno Start Time Stop Time Status Last Admin Dose Admin Morphine Sulfate (Morphine 4mg Syringe) 4 mg 1X ONCE 01/02/21 10:45 01/02/21 10:46 DC 01/02/21 11:36 4 MG Ondansetron HCl (Zofran) 4 mg 1X ONCE 01/02/21 10:45 01/02/21 10:46 DC 01/02/21 11:35 4 MG Sodium Chloride 1,000 ml @ 1,000 mls/hr 1X ONCE 01/02/21 10:45 01/02/21 11:44 01/02/21 11:33 1,000 MLS/HR (RICHIE ROQUE APRN) Allergies: Allergies: Allergies Coded Allergies Type Severity Reaction Last Updated Verified adhesive tape Allergy Intermediate 01/02/21 Yes fentanyl Allergy Unknown 01/02/21 Yes sulfamethoxazole Allergy Unknown 01/02/21 Yes trimethoprim Allergy Unknown 01/02/21 Yes vancomycin Allergy Unknown 01/02/21 Yes (RICHIE ROQUE APRN) Physical Exam: PE: Constitutional: Well developed, well nourished, no acute distress, non-toxic appearance. [] HENT: Normocephalic, atraumatic, bilateral external ears normal, oropharynx moist, no oral exudates, nose normal. [] Eyes: PERRLA, EOMI, conjunctiva normal, no discharge. [] Neck: Normal range of motion, no tenderness, supple, no stridor. [] Cardiovascular:Heart rate regular rhythm, no murmur [] Lungs & Thorax: Bilateral breath sounds clear to auscultation [] Abdomen: Bowel sounds normal, soft, no tenderness, no masses, no pulsatile masses. [] Skin: Warm, dry, no erythema, no rash. [] Back: No tenderness, no CVA tenderness. [] Extremities: No tenderness, no cyanosis, no clubbing, ROM intact, no edema. [] Neurologic: Alert and oriented X 3, normal motor function, normal sensory function, no focal deficits noted. [] Psychologic: Affect normal, judgement normal, mood normal. [] (RICHIE ROQUE APRN) Current Patient Data: Labs: Laboratory Tests Test 01/02/21 10:50 01/02/21 11:11 White Blood Count 5.5 x10^3/uL (4.0-11.0) Red Blood Count 4.79 x10^6/uL (3.50-5.40) Hemoglobin 14.5 g/dL (12.0-15.5) Hematocrit 42.1 % (36.0-47.0) Mean Corpuscular Volume 88 fL (79-100) Mean Corpuscular Hemoglobin 30 pg (25-35) Mean Corpuscular Hemoglobin Concent 34 g/dL (31-37) Red Cell Distribution Width 13.7 % (11.5-14.5) Platelet Count 87 x10^3/uL (140-400) L Neutrophils (%) (Auto) 65 % (31-73) Lymphocytes (%) (Auto) 27 % (24-48) Monocytes (%) (Auto) 6 % (0-9) Eosinophils (%) (Auto) 2 % (0-3) Basophils (%) (Auto) 1 % (0-3) Neutrophils # (Auto) 3.5 x10^3uL (1.8-7.7) Lymphocytes # (Auto) 1.5 x10^3/uL (1.0-4.8) Monocytes # (Auto) 0.3 x10^3/uL (0.0-1.1) Eosinophils # (Auto) 0.1 x10^3/uL (0.0-0.7) Basophils # (Auto) 0.0 x10^3/uL (0.0-0.2) Acetone Level Neg (NEG) POC Urine HCG, Qualitative hcg negative (Negative) Vital Signs: Vital Signs Date Time Temp Pulse Resp B/P (MAP) Pulse Ox O2 Delivery O2 Flow Rate FiO2 01/02/21 11:36 18 96 Room Air 01/02/21 11:30 93 124/69 (87) 01/02/21 10:35 98.2 (RICHIE ROQUE VP DELIVERY) EKG: EKG: [] (RICHIE ROQUE VP DELIVERY) Radiology/Procedures: Radiology/Procedures: []CT of the abdomen pelvis without contrast. HISTORY: Abdominal pain, history of pancreatitis CT abdomen pelvis was done without contrast. Comparison is made with a previous study from May 14. Lung bases are clear. There is no effusion. Patient has a TIPS shot, I cannot evaluate the patency of the chest. Spleen is generous in size. A focal liver lesion is not identified. Adrenal glands are normal. There are calcifications in the pancreas from chronic pancreatitis. The pancreatic duct stent. There is slight haziness about the head of the pancreas and a mild pancreatitis is possible. Pattern is somewhat similar to the prior exam. There is no mass or hydronephrosis in the kidneys. There are punctate calculi in the lower pole of the left kidney. There is no bowel obstruction. There is a trace of free fluid in the pelvis. Uterus and ovaries are unremarkable, there is a 1.8 cm follicle in the right ovary. Appendix is normal. IMPRESSION: 1. TIPS shunt in the liver. 2. Pancreatic duct stent. 3. Minimal peripancreatic inflammation, mild pancreatitis is possible. 4. Normal appendix. 5. No bowel obstruction. PQRS Compliance Statement: One or more of the following individualized dose reduction techniques were utilized for this examination: 1. Automated exposure control 2. Adjustment of the mA and/or kV according to patient size 3. Use of iterative reconstruction technique Electronically signed by: Michael Godinez MD (01/02/2021 11:22 AM) [facility] (RICHIE ROQUE APRN) Heart Score: C/O Chest Pain: No Risk Factors: Risk Factors: DM, Current or recent (<one month) smoker, HTN, HLP, family history of CAD, obesity. Risk Scores: Score 0 - 3: 2.5% MACE over next 6 weeks - Discharge Home Score 4 - 6: 20.3% MACE over next 6 weeks - Admit for Clinical Observation Score 7 - 10: 72.7% MACE over next 6 weeks - Early Invasive Strategies (RICHIE ROQUE APRN) Course & Med Decision Making: Course & Med Decision Making Pertinent Labs and Imaging studies reviewed. (See chart for details) [] 35-year-old female presents with abdominal pain and chronic pancreatitis. Patient states that she has had pain over the last few weeks and is tried to do liquids only. Patient states that she was unable to handle the pain and nausea anymore. Patient is taking tramadol at home with little relief. Patient is also reporting hyperglycemia. Patient states her blood sugar was over 600 this morning and took [address] abdomen pelvis ordered along with CBC, CMP, and lipase. Patient given morphine, Zofran, NS bolus. CT abdomen pelvis is negative for acute abnormality. Blood glucose 412, lipase 56, gap 8. All labs unremarkable. Urine negative. UA is negative for infection. Recheck blood sugar, 312. Patient instructed to follow-up with her PCP for further management. Sending patient home with Zofran for nausea. Patient given hydrocodone 5/325. Patient is hemodynamically stable. Patient is appreciative and okay with discharge plan. (RICHIE ROQUE APRN) Course & Med Decision Making I was the Attending physician on the above date of service of this patient. This patient was evaluated, examined, treated, and dispositioned from the emergency department by the mid-level practitioner. Although I was working at the time , no assistance was requested. Electronically signed, Tracey Fuller DO (TRACEY FULLER DO) Vee Disclaimer: Vee Disclaimer: This electronic medical record was generated, in whole or in part, using a voice recognition dictation system. (RICHIE ROQUE NAMRATA) Departure Departure: Impression: Primary Impression: Acute pancreatitis Qualified Codes: K85.90 - Acute pancreatitis without necrosis or infection, unspecified Additional Impression: Nausea Disposition: 01 HOME / SELF CARE / HOMELESS Condition: STABLE Referrals: VINNIE TEAGUE (PCP) Patient Instructions: Acute Pancreatitis, [id number] Additional Instructions: You are seen in the emergency room for abdominal pain. CT was unremarkable. You were given pain and nausea medication. You need to follow-up with your PCP for further management. I am sending you home with Zofran for nausea. Return the emergency room for worsening symptoms or concerns. EMERGENCY DEPARTMENT GENERAL DISCHARGE INSTRUCTIONS Thank you for coming to [facility] (ED) today and trusting us with you care. We trust that you had a positivie experience in our Emergency Department. If you wish to speak to the department management, you may call the director at [phone]. YOUR FOLLOW UP INSTRUCTIONS ARE FOLLOWS: 1. Do you have a private Doctor? If you do not have a private doctor, please ask for a resource list of physicians or clinics that may be able to assist you with follow up care. 2. The Emergency Physician has interpreted your x-rays. The X-Ray specialist will also review them. If there is a change in the findings, you will be notified in 48 hours when at all possible. 3. A lab test or culture has been done, your results will be reviewed and you will be notified if you need a change in treatment. ADDITIONAL INSTRUCTIONS AND INFORMATION: 1. Your care today has been supervised by a physician who is specially trained in emergency care. Many problems require more than one evaluation for a complete diagnosis and treatment. We recommend that you schedule your follow up appointment as recommended to ensure complete treatment of you illness or injury. If you are unable to obtain follow up care and continue to have a problem, or if your condition worsens, we recommend that you return to the ED. 2. We are not able to safely determine your condition over the phone nor are we able to give sound medical advice over the phone. For these safety reasons, if you call for medical advice we will ask you to come to the ED for further evaluation. 3. If you have any questions regarding these discharge instructions please call the ED at [phone]. SAFETY INFORMATION: In the interest of safety, wellness, and injury prevention; we encourage you to wear your sealbelt, if you smoke; quite smoking, and we encourage family to use a protective helmet for bicycling and other sporting events that present an increased risk for head injury. IF YOUR SYMPTOMS WORSEN OR NEW SYMPTOMS DEVELOP, OR YOU HAVE CONCERNS ABOUT YOUR CONDITION; OR IF YOUR CONDITION WORSENS WHILE YOU ARE WAITING FOR YOUR FOLLOW UP APPOINTMENT; EITHER CONTACT YOUR PRIMARY CARE DOCTOR, THE PHYSICIAN WHOSE NAME AND NUMBER YOU WERE GIVEN, OR RETURN TO THE ED IMMEDIATELY. Scripts Ondansetron Hcl (ZOFRAN) 4 Mg Tablet 4 MG PO TID PRN PRN for NAUSEA, #9 TAB Prov: RICHIE ROQUE APRN 01/02/21 RICHIE ROQUE APRN Jan 02, 2021 11:46 TRACEY FULLER DO Jan 03, 2021 13:04
[2021-01-02 12:00] LABS: BACTERIA,URINE FEW /HPF (0-FEW); BILIRUBIN,URINE NEG (NEG); CLARITY,URINE CLEAR; COLOR,URINE YELLOW; GLUCOSE,URINE >=1000 mg/dL (NEG); NITRITE,URINE NEG (NEG); RBC,URINE 20-40 /HPF (0-2); SQUAMOUS EPITHELIAL CELL,UR MOD /LPF; UROBILINOGEN,URINE 0.2 mg/dL (0.2 mg/dL)
[2021-01-02] MEDS ORDERED: ONDA4TAB7 PO (12:34)
[2021-01-02 12:54] VITALS: BP 109/63
[2021-01-02] MEDS ORDERED: HYDROcodone/APAP 5/325MG 1 TAB TABLET PO ONE (13:00)
--- NOTE | 2021-01-02 13:37 | EKG ---
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
[2021-01-03] MEDS ORDERED: DEXTROSE 50% 25 GM / 50ML DISP.SYRIN. IV PRN (13:00)
[2021-01-03] MEDS ORDERED: oxyCODONE IR 5 MG TABLET PO PRN (13:15)
[2021-01-03] MEDS ORDERED: ONDANSETRON ODT 4 MG TAB.RAPDIS PO PRN (13:15)
[2021-01-03] MEDS ORDERED: GABAPENTIN 300 MG CAPSULE. PO SCH (14:00)
--- NOTE | 2021-01-03 14:24 | HP ---
ADMIT DATE: 01/02/2021 HISTORY OF PRESENT ILLNESS: The patient is a 35-year-old female patient who presented to the Emergency Room with a complaint of abdominal pain that she rated at 7/10 in severity, radiates through and through to the back, associated with nausea, vomiting and has been going on for almost two weeks. 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 She apparently has pancreatic divisum and has stent placed in her pancreatic duct. The last one was done on 11/2000. She also found that her blood sugar was high at over 600 and having trouble keeping it under control. Last menstrual period was on 12/09. She was extensively investigated in the Emergency Room and her lab work was mostly unremarkable in fact other than hyperglycemia and slightly elevated alkaline phosphatase, her serum lipase was only 56, her white cell count was normal. Her blood gases are not consistent with diabetic ketoacidosis rather just hyperglycemia and her urinalysis was mostly unremarkable. Her urine test was negative and her toxic screen was negative. Has had a CT scan of the abdomen and pelvis, which showed that the patient has a TIPS shunt in the liver and pancreatic duct stent, minimal peripancreatic inflammation, mild pancreatitis is possible with normal appendix and no bowel obstruction. PAST MEDICAL HISTORY: Significant for pancreatic divisum. She is known to have alcoholic liver cirrhosis with portal hypertension, esophageal varices and ascites. She apparently has had TIPS procedure and according to her, she has never had any problem with ascites since then. She also has esophageal varices banding. She is known to have type 2 diabetes mellitus. PAST SURGICAL HISTORY: Significant for pancreatic duct stent placement, TIPS procedure. She has cholecystectomy, , esophagogastroduodenoscopy and colonoscopy. She has obvious esophageal varices banding and multiple paracentesis before TIPS procedure. ALLERGIES: SHE IS ALLERGIC TO ADHESIVE TAPE, FENTANYL, SULFAMETHOXAZOLE, TRIMETHOPRIM, AND VANCOMYCIN. MEDICATIONS: She is currently on the following medication: She is on rifaximin 550 mg twice a day, gabapentin 300 mg 3 times a day, mirtazapine 30 mg at bedtime, trazodone 300 mg in the morning, venlafaxine for Effexor XR 75 mg once a day. She is on Creon before meals and bedtime, ondansetron 4 mg 3 times a day, Protonix 40 mg twice a day. She is on Lantus insulin 30 units subcutaneously at bedtime and Lidoderm patch apply topically once a day. FAMILY HISTORY: Has one full brother, younger and healthy. Does not know her father. Mother is alive at age of 60 and known to have alcoholic liver disease. SOCIAL HISTORY: She is , has a son and a daughter. She smokes about 10 cigarettes a day. Does not drink alcohol. She has been using marijuana occasionally for controlling her pain. 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 REVIEW OF SYSTEMS: The patient denied any blurring of vision, cataracts, glaucoma or macular degeneration. Denied any earache, tinnitus or sensory deafness. Denied any nosebleed, stuffy nose or postnasal drip. Denied any sore throat, sore tongue, toothache, hoarseness of voice or difficulty swallowing. Did complain of nausea, vomiting. Denied any diarrhea or constipation. Denied any hematemesis, melena or hematochezia. She denies any dysuria, frequency or hematuria. Denied any chest pain, shortness of breath, orthopnea, or paroxysmal nocturnal dyspnea. PHYSICAL EXAMINATION: GENERAL: When I examined her, she was resting slightly propped up in bed, in no apparent respiratory distress. No pallor, jaundice, cyanosis, or thyromegaly. No jugular venous distention. No limb edema. VITAL SIGNS: Her heart rate was 88, blood pressure is 109/63, temperature was 98.2, respiratory rate was 16 and oxygen saturation was 96% on room air. HEAD, EYES, EARS, NOSE, AND THROAT: Normocephalic, atraumatic. NECK: Supple. HEART: Normal first and second heart sounds. No gallop or murmur. CHEST: Clear to auscultation. No crepitation or rhonchi. ABDOMEN: Distended with tenderness mostly in the epigastric and right upper quadrant. There is no guarding or rigidity. No organomegaly. All hernial orifice intact. Bowel sounds normal. NEUROLOGIC: She was grossly intact. LABORATORY DATA: Showed a white cell count 5500, hemoglobin 14.5, hematocrit 42, MCV 88 and platelet count of 87,000. Her chemistry showed a serum sodium 134, potassium 3.9, chloride 99, bicarbonate 27, anion gap of 8, BUN 6, creatinine 0.7. Estimated GFR was 95 mL per minute. Her glucose was 112, calcium was 8.9. Total bilirubin, AST, ALT were normal. Alkaline phosphatase is slightly elevated. Total protein was 7.7, albumin 3.4 and serum lipase was 56. Her urinalysis was essentially unremarkable and tox screen was negative. CT scan of the abdomen and pelvis showed the patient has TIPS shunt in the liver, pancreatic duct stent, minimal peripancreatic inflammation, mild pancreatitis is possible and normal appendix with no bowel obstruction. ASSESSMENT AND PLAN: The patient would be admitted with acute pancreatitis. We will continue with a liquid diet, started on insulin sliding scale and perhaps oxycodone. We will observe her overnight and if she remains stable, she can be discharged home tomorrow. SARAH DR: Chad TID: [id number]
[2021-01-03] MEDS ORDERED: LIPASE/PROTEAS/AMYLAS 10/32/42 CAPSULE.DR. PO SCH (16:30)
[2021-01-03] MEDS ORDERED: INSULIN LISPRO 300 UNITS/3 ML VIAL. SQ SCH (17:00)
[2021-01-03] MEDS ORDERED: PANTOPRAZOLE 40 MG TABLET. PO SCH (21:00)
[2021-01-03] MEDS ORDERED: rifAXIMin 550 MG TABLET PO SCH (21:00)
[2021-01-03] MEDS ORDERED: traZODone 150 MG TABLET. PO SCH (21:00)
[2021-01-03] MEDS ORDERED: INSULIN GLARGINE SYRINGE. SQ SCH (21:00)
[2021-01-03] MEDS ORDERED: MIRTAZAPINE 30 MG TABLET PO SCH (21:00)
== END 2021-01-02 13:25 | disposition home or self-care (01) ==
LOC: ER 10:25
DX: K85.90 Acute pancreatitis without necrosis or infection, unspecified (principal); E11.9 Type 2 diabetes mellitus without complications; I10 Essential (primary) hypertension; F17.210 Nicotine dependence, cigarettes, uncomplicated; F10.20 Alcohol dependence, uncomplicated; Z90.49 Acquired absence of other specified parts of digestive tract; Z98.890 Other specified postprocedural states; Z88.8 Allergy status to other drugs, medicaments and biological substances; Z88.1 Allergy status to other antibiotic agents; Z88.2 Allergy status to sulfonamides; Y90.9 Presence of alcohol in blood, level not specified
CPT/HCPCS: 36415; 74176; 80053; 81001; 81025; 82010; 82803; 82947; 83690; 84484; 85025; 93005; 96361; 96374; 96375; 99285; J2270; J2405; J7030

== ENCOUNTER 2021-01-03 08:20 | Observation (INO) | payer BC ==
[~2021-01-03] VITALS: Ht 172.7 cm; Wt 100.5 kg
[~2021-01-03 08:20] MED LIST changes: +ONDA4TAB7 PO
[2021-01-03] MEDS ORDERED: IV NORMAL SALINE 1,000ML 1,000 ML IV ONE (09:15)
[2021-01-03] MEDS ORDERED: ACETAMINOPHEN 500 MG TABLET PO ONE (09:15)
--- NOTE | 2021-01-03 09:24 | PHYS DOC ---
Past History Past Medical History: Alcoholism, Diabetes, Hypertension, Ovarian Cyst, Pancreatitis, Other Additional Past Medical Histor: PCOS, endometriosis Past Surgical History: Cholecystectomy, , Other Additional Past Surgical Histo: lymph nodectomy from groin; liver and pancreatic stents Smoking: Cigarettes Alcohol Use: Rarely Drug Use: None General Adult EDM: Chief Complaint: ABDOMINAL PAIN HPI: HPI: 35-year-old female returns to the emergency room with epigastric abdominal pain. Patient also has a fever on arrival. She was seen in the ER yesterday. She had evidence of pancreatitis on CT scan. The patient has a history of liver shunt and pancreatic duct stent. She has not been vaccinated for COVID-19. She denies shortness of breath or chest pain. She has had some nausea and vomiting. Her blood sugars are continue to be elevated. Review of Systems: Review of Systems: Constitutional: Denies fever or chills Eyes: Denies change in visual acuity HENT: Denies nasal congestion or sore throat Respiratory: Denies cough or shortness of breath Cardiovascular: Denies chest pain or edema GI: Epigastric abdominal pain, nausea, vomiting. : Denies dysuria Musculoskeletal: Denies back pain or joint pain Integument: Denies rash Neurologic: Denies headache, focal weakness or sensory changes Endocrine: Denies polyuria or polydipsia Lymphatic: Denies swollen glands Psychiatric: Denies depression or anxiety Current Medications: Current Meds: Current Medications Medications (Trade) Dose Ordered Sig/Geno Start Time Stop Time Status Last Admin Dose Admin Acetaminophen (Tylenol) 1,000 mg 1X ONCE 01/03/21 09:15 01/03/21 09:19 DC Sodium Chloride 1,000 ml @ 1,000 mls/hr 1X ONCE 01/03/21 09:15 01/03/21 10:14 Allergies: Allergies: Allergies Coded Allergies Type Severity Reaction Last Updated Verified adhesive tape Allergy Intermediate 01/02/21 Yes fentanyl Allergy Unknown 01/02/21 Yes sulfamethoxazole Allergy Unknown 01/02/21 Yes trimethoprim Allergy Unknown 01/02/21 Yes vancomycin Allergy Unknown 01/02/21 Yes Physical Exam: PE: Constitutional: Well developed, well nourished, obese, no acute distress, non- toxic appearance. [] HENT: Normocephalic, atraumatic, bilateral external ears normal, oropharynx moist, no oral exudates, nose normal. [] Eyes: PERRLA, EOMI, conjunctiva normal, no discharge. [] Neck: Normal range of motion, no tenderness, supple, no stridor. [] Cardiovascular: Heart rate regular rhythm, no murmur [] Lungs & Thorax: Bilateral breath sounds clear to auscultation [] Abdomen: Bowel sounds normal, soft, epigastric tenderness, no masses, no pulsatile masses. [] Skin: Warm, dry, no erythema, no rash. [] Back: No tenderness, no CVA tenderness. [] Extremities: No tenderness, no cyanosis, no clubbing, ROM intact, no edema. [] Neurologic: Alert and oriented X 3, normal motor function, normal sensory function, no focal deficits noted. [] Psychologic: Affect normal, judgement normal, mood normal. [] Current Patient Data: Vital Signs: Vital Signs Date Time Temp Pulse Resp B/P (MAP) Pulse Ox O2 Delivery O2 Flow Rate FiO2 01/03/21 08:59 100.4 111 18 109/63 96 Room Air EKG: EKG: Sinus rhythm, rate 88, normal axis, no ST elevation or depression. [] Radiology/Procedures: Radiology/Procedures: [] Impressions: AP chest. HISTORY: Fever AP view was taken of the chest. There is no pneumothorax or pleural effusion. Heart is normal in size. Lungs are free of acute infiltrates. IMPRESSION: 1. No acute infiltrates. Electronically signed by: Michael Godinez MD (01/03/2021 9:38 AM) [facility] DICTATED AND SIGNED BY: MICHAEL GODINEZ MD DATE: 01/03/21 0938 CC: MODESTA CHANEY DO; VINNIE TEAGUE PA ~MTH0 0 Heart Score: C/O Chest Pain: N/A Risk Factors: Risk Factors: DM, Current or recent (<one month) smoker, HTN, HLP, family history of CAD, obesity. Risk Scores: Score 0 - 3: 2.5% MACE over next 6 weeks - Discharge Home Score 4 - 6: 20.3% MACE over next 6 weeks - Admit for Clinical Observation Score 7 - 10: 72.7% MACE over next 6 weeks - Early Invasive Strategies Course & Med Decision Making: Course & Med Decision Making Pertinent Labs and Imaging studies reviewed. (See chart for details) The patient's blood sugar is elevated over 500. I have ordered 10 units of insulin. Labs are still pending. The patient's anion gap is normal. Her other labs are essentially unremarkable. The patient's repeat blood sugar is over 400. I have ordered 20 additional units of insulin. Given her continued abdominal pain and CT diagnosed pancreatitis from yesterday, I will admit the patient to the hospital. I have given her 2 mg of morphine. I spoke with Dr. Magana and he has accepted the patient for admission. [] Dragon Disclaimer: Dragmaggy Disclaimer: This electronic medical record was generated, in whole or in part, using a voice recognition dictation system. Departure Departure: Impression: Primary Impression: Pancreatitis Additional Impression: Hyperglycemia Disposition: ADMITTED INPATIENT Admitting Physician: Stevie Magana Condition: STABLE Referrals: VINNIE TEAGUE (PCP) MODESTA CHANEY DO Jan 03, 2021 09:24
[2021-01-03 09:38] LABS: BASO % 1 % (0-3); EOS # 0.1 x10^3/uL (0.0-0.7); EOS % 2 % (0-3); HEMATOCRIT 42.6 % (36.0-47.0); HEMOGLOBIN 14.3 g/dL (12.0-15.5); LYMPH # 1.1 x10^3/uL (1.0-4.8); LYMPH % 23 % (24-48); MEAN CORPUSCULAR HEMOGLOBIN 30 pg (25-35); MEAN CORPUSCULAR HGB CONC 34 g/dL (31-37); MEAN CORPUSCULAR VOLUME 90 fL (79-100); MONO # 0.4 x10^3/uL (0.0-1.1); MONO % 8 % (0-9); NEUT # 3.3 x10^3uL (1.8-7.7); NEUT % 67 % (31-73); PLATELET COUNT 92 x10^3/uL (140-400); RED BLOOD COUNT 4.76 x10^6/uL (3.50-5.40); RED CELL DISTRIBUTION WIDTH 13.8 % (11.5-14.5); WHITE BLOOD COUNT 4.9 x10^3/uL (4.0-11.0)
--- NOTE | 2021-01-03 09:41 | RAD ---
AP chest. HISTORY: Fever AP view was taken of the chest. There is no pneumothorax or pleural effusion. Heart is normal in size . Lungs are free of acute infiltrates. IMPRESSION: 1. No acute infiltrates. Electronically signed by: Michael Godinez MD (01/03/2021 9:38 AM) [facility] [place]
--- NOTE | 2021-01-03 09:44 | EKG ---
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
[2021-01-03 09:54] LABS: ALBUMIN 3.3 g/dL (3.4-5.0); ALBUMIN/GLOBULIN RATIO 0.9 (1.0-1.7); CALCIUM 8.6 mg/dL (8.5-10.1); CREATININE 0.8 mg/dL (0.6-1.0); GFR 81.6; POTASSIUM 4.4 mmol/L (3.5-5.1); TOTAL BILIRUBIN 0.2 mg/dL (0.2-1.0); TOTAL PROTEIN 7.1 g/dL (6.4-8.2)
[2021-01-03] MEDS ORDERED: INSULIN REGULAR 100 UNIT/ML 3ML VIAL. IV ONE ×2 (10:30→11:45)
[2021-01-03] MEDS ORDERED: MORPHINE SULFATE 2 MG/ML DISP.SYRIN. IV ONE (12:45)
[2021-01-03] MEDS: oxyCODONE IR 5 MG TABLET PO PRN (18:22)
[2021-01-03] MEDS ORDERED: DEXTROSE 50% 25 GM / 50ML DISP.SYRIN. IV PRN (18:30)
[2021-01-03] MEDS ORDERED: LIDOCAINE (700MG/PATCH) PATCH. TP PRN (18:30)
[2021-01-03] MEDS: LIPASE/PROTEAS/AMYLAS 10/32/42 CAPSULE.DR. PO SCH ×2 (18:35→21:00)
[2021-01-03] MEDS ORDERED: ONDANSETRON ODT 4 MG TAB.RAPDIS PO PRN (18:45)
[2021-01-03] MEDS ORDERED: INSULIN LISPRO 300 UNITS/3 ML VIAL. SQ ONE (19:45)
[2021-01-03] MEDS: INSULIN LISPRO 300 UNITS/3 ML VIAL. SQ SCH (20:10)
[2021-01-03] MEDS ORDERED: MIRTAZAPINE 30 MG TABLET PO SCH (21:00)
[2021-01-03] MEDS ORDERED: traZODone 150 MG TABLET. PO SCH (21:00)
[2021-01-03] MEDS ORDERED: INSULIN GLARGINE SYRINGE. SQ SCH (21:00)
[2021-01-03] MEDS: rifAXIMin 550 MG TABLET PO SCH (21:07)
[2021-01-03] MEDS: PANTOPRAZOLE 40 MG TABLET. PO SCH (21:11)
[2021-01-03] MEDS: GABAPENTIN 100 MG CAPSULE. PO SCH (21:11)
[2021-01-04 00:08] VITALS: BP 136/86
--- NOTE | 2021-01-04 00:11 | NUR ---
PT ADMITTED TO [facility] VIA EMS ACCOMPANIED BY ER STAFF. PT IS AOX4. POC DISCUSSED W/ VERBALIZED UNDERSTANDING. PT HAS COMPLAINTS OF PAIN RATING 8/10 ON NUMERIC SCALE. MD CALLED. ORDERS RECEIVED. 4MG IVP MORPHINE GIVEN INDICATED. CALL LIGHT IN REACH WILL CONTINUE TO MONITOR.
[2021-01-04] MEDS ORDERED: MORPHINE SULFATE 4 MG/ML DISP.SYRIN. IV PRN (00:15)
[2021-01-04] MEDS ORDERED: PROCHLORPERAZINE 10 MG/2 ML VIAL. IV PRN (00:15)
[2021-01-04 06:29] VITALS: BP 98/64
[2021-01-04 06:51] LABS: ALBUMIN/GLOBULIN RATIO 0.7 (1.0-1.7); CALCIUM 8.2 mg/dL (8.5-10.1); CREATININE 0.5 mg/dL (0.6-1.0); GFR 140.4; POTASSIUM 3.7 mmol/L (3.5-5.1); TOTAL BILIRUBIN 0.4 mg/dL (0.2-1.0); TOTAL PROTEIN 7.1 g/dL (6.4-8.2)
[2021-01-04] MEDS: LIPASE/PROTEAS/AMYLAS 10/32/42 CAPSULE.DR. PO SCH (07:30)
[2021-01-04] MEDS: GABAPENTIN 100 MG CAPSULE. PO SCH (08:50)
[2021-01-04] MEDS: PANTOPRAZOLE 40 MG TABLET. PO SCH (08:50)
[2021-01-04] MEDS: rifAXIMin 550 MG TABLET PO SCH (08:51)
[2021-01-04] MEDS: INSULIN LISPRO 300 UNITS/3 ML VIAL. SQ SCH (08:59)
[2021-01-04] MEDS ORDERED: VENLAFAXINE XR 37.5 MG CAP.ER.24H. PO SCH (09:00)
[2021-01-04] MEDS: oxyCODONE IR 5 MG TABLET PO PRN (10:18)
--- NOTE | 2021-01-04 10:36 | DS ---
DATE OF DISCHARGE: 01/04/2021 ATTENDING PHYSICIAN: Dr. sOorio. FINAL DISCHARGE DIAGNOSES: 1. Abdominal pain, functional in nature. 2. History of chronic pancreatitis. 3. Type 2 diabetes mellitus with poor control. 4. Gastroesophageal reflux disease. 5. History of pancreatic divisum. 6. History of cirrhosis. 7. History of liver stents and pancreatic stents. HISTORY AND PHYSICAL: The patient is a 35-year-old female admitted with nonspecific abdominal pain. There is questionable evidence of chronic pancreatitis. She is not drinking anymore. She continues to smoke. PHYSICAL EXAMINATION: Please see my dictated note. PERTINENT LABORATORY AND X-RAY STUDIES: Blood sugars were high over 500, subsequently came down down to 208 prior to discharge. Her lipase was 51. Her CBC was normal. Electrolytes within normal range. Chest x-ray was clear. I do not have the CT report from this admission. COURSE IN THE HOSPITAL: The patient was admitted. Her diet was advanced. Her pain was controlled. Her sugars were much improved. I examined her the next day. Her abdominal exam was entirely benign. There was no guarding or rebound tenderness. No rigidity. She was afebrile. Blood pressure and vital signs were stable. Oxygen saturation 97% on room air. At this time, I feel her symptoms are more consistent with irritable bowel syndrome. I recommended Extentabs 1 b.i.d. and continuation of her home meds. There were no changes. They include the following: She should continue her Neurontin 300 mg t.i.d., insulin Lantus and regular, Lidoderm patch, Creon capsules 4 times a day, Remeron, ondansetron, Protonix, Xifaxan, trazodone and Effexor doses unchanged. She will follow up with Halina Betancourt as scheduled. Strong encouragement to avoid further tobacco use. I suggested e-cigarettes. Whether or not she quits or go to the e-cigarettes, remains to be seen. She states she is not drinking alcohol anymore; I do believe her. She was discharged then with a script for Extentabs 1 b.i.d. She will follow up with Halina Betancourt. She was discharged from our hospital in stable condition with explicit instruction and followup care. GERTRUDIS DR: Mary Ann TID: [id number] CC: SHARI EASLEY
[2021-01-04 10:39] VITALS: BP 142/84
--- NOTE | 2021-01-04 11:07 | HP ---
ADMIT DATE: 01/04/2021 ATTENDING PHYSICIAN: Dr. Osorio. CHIEF COMPLAINT: Epigastric pain. HISTORY OF PRESENT ILLNESS: The patient is a 35-year-old female with chronic GI issues. She has had pancreatic divisum resulting in previous procedures of pancreatic duct. She also has liver disease, this is complicated by diabetes and history of alcoholism. She had new onset of epigastric pain, low-grade fevers 100 degrees Fahrenheit, poorly controlled diabetes. She had evidence of pancreatitis, but it may be chronic in nature. She has a history of liver shunt and pancreatic duct shunt. She has not been vaccinated for COVID-19. She has had some nausea. Blood sugars are still elevated. She was admitted for further treatment and evaluation. CURRENT MEDICATIONS: Reviewed. She was on Neurontin, insulin, lidocaine, lipase, Remeron, ondansetron, Protonix, Xifaxan, trazodone and Effexor. ALLERGIES: SHE HAS ALLERGIES TO FENTANYL, SULFA DRUGS, VANCOMYCIN, REACTION EXACTLY IS UNCLEAR. SOCIAL HISTORY: Smoking history: Half a pack a day. Drinking history: None related. FAMILY HISTORY: Noncontributory. REVIEW OF SYSTEMS: She sees a GI doctor at [facility]. She had recent endoscopy in May of this year. Colonoscopy was also done that were unremarkable. She has had the GI symptoms. No recent COVID exposure. Her COVID swab was negative. All other systems reviewed and turned to be negative. PHYSICAL EXAMINATION: GENERAL: When I saw her, this is a pleasant young female. VITAL SIGNS: Initial vital signs showed a blood pressure of 136/86. She was afebrile, oxygen saturation 97% on room air. HEENT: Head is without trauma. Pupils are reactive. Sclerae nonicteric. Oropharynx clear. NECK: Supple, no bruits. LUNGS: Clear. CARDIOVASCULAR: Regular heart tones. ABDOMEN: Minimal guarding. There was no rebound tenderness. Bowel sounds were normoactive. EXTREMITIES: Showed no cyanosis or edema. NEUROLOGIC: Function focally intact. Speech is fluent. SKIN: Warm and dry. LABORATORY DATA: Hemoglobin 14.3 g/dL, white count 4900. Lipase was 51. Nonfasting blood sugar 415 on admission. Electrolytes within normal range. Creatinine 0.5 mg/dL. IMAGING STUDIES: As noted. CT showed mild evidence of chronic pancreatitis. I do not have the report at this time. ASSESSMENT: 1. A 35-year-old female with abdominal pain. 2. Chronic pancreatitis, whether this has a normal lipase level. 3. Type 2 diabetes with poor control. 4. Chronic obstructive pulmonary disease and tobacco use. PLAN: 1. Admission to the observation status. 2. Pain and nausea control. 3. Continue some home meds. 4. Glucose control. NANETTE/FACUNDO/GISELLE DR: Mary Ann TID: [id number] CC: SHARI eMza
--- NOTE | 2021-01-04 11:12 | NUR ---
PT AMBULATED OUT OF ROOM 119. PT STATED SHE WAS GOING TO WALK HOME BECAUSE SHE [place]. PT STABLE. PER DR. KAHN PT DID NOT HAVE PANCREATITIS. PT ASKED FOR PAIN MEDS BEFORE LEAVING. PT WAS INSTRUCTED NOT TO DRIVE TODAY. PT GIVEN PAPER SCRIPT.
== END 2021-01-04 11:14 | disposition home or self-care (01) ==
LOC: ER 08:20 → 1 SOUTH 21:50 → INTOOBSV 21:50
PROVIDERS: ADMIT Internal Medicine; ATTEND Internal Medicine
DX: R10.13 Epigastric pain (principal); R11.2 Nausea with vomiting, unspecified; E11.65 Type 2 diabetes mellitus with hyperglycemia; K86.1 Other chronic pancreatitis; K21.9 Gastro-esophageal reflux disease without esophagitis; J44.9 Chronic obstructive pulmonary disease, unspecified; I10 Essential (primary) hypertension; K85.90 Acute pancreatitis without necrosis or infection, unspecified; K74.60 Unspecified cirrhosis of liver; F17.200 Nicotine dependence, unspecified, uncomplicated; Z79.899 Other long term (current) drug therapy; Z20.822 Contact with and (suspected) exposure to COVID-19
CPT/HCPCS: 36415; 71045; 80053; 82947; 83690; 84484; 85025; 93005; 96361; 96372; 96374; 96375; 96376; 99285; G0378; J0780; J1815; J2270; J7030; Q0162; U0003; G0379

== ENCOUNTER 2021-07-20 19:19 | Emergency (ER) | payer BC, OTHER ==
[~2021-07-20] VITALS: Ht 172.7 cm; Wt 102.0 kg
--- NOTE | 2021-07-20 19:24 | PHYS DOC ---
Past History Past Medical History: Alcoholism, Diabetes, Hypertension, Ovarian Cyst, Pancreatitis, Other Additional Past Medical Histor: PCOS, endometriosis Past Surgical History: Cholecystectomy, , Other Additional Past Surgical Histo: lymph nodectomy from groin; liver and pancreatic stents Smoking: Cigarettes Alcohol Use: Rarely Drug Use: None General Adult HPI: HPI: ".. I ve been sick.. I got it from my .. it started with Diarrhea.. then nausea and vomiting... My was sick lst... but he is over it... It all got bad about 2:00 pm yesterday...I even vomited up some discolor.. material.. " Patient is a 36 year old female who presents with above hx and complaints nausea, vomiting and diarrhea. Patient also goes by the name Brina Pate.. Pt. states nausea was first onset then diarrhea now vomiting. Patient denies any bad food intake. No recent travel. No specific ill contacts other than . had same symptoms but is over them now. Patient did get COVID vaccination this past April. Patient has had flu vaccination. No history of bad food intake. Patient has had a history of pancreatitis in the past with alcohol induced. Patient denies that is the cause of the problem now. Patient normally follows with Dr. Pereira for care. Patient has had 6 pregnancies 2 live births by , the rest of her miscarriages.. Hx. esophageal varices in 2019 secondary to alcoholic liver disease. Pt. states she no longer drinks alcohol. Review of Systems: Review of Systems: Constitutional: Denies fever or chills Eyes: Denies change in visual acuity HENT: Denies nasal congestion or sore throat Respiratory: Denies cough or shortness of breath Cardiovascular: Denies chest pain or edema GI: Complaints abdominal pain, nausea, vomiting, and diarrhea : Denies dysuria Musculoskeletal: Denies back pain or joint pain Integument: Denies rash Neurologic: Denies headache, focal weakness or sensory changes Endocrine: Denies polyuria or polydipsia Lymphatic: Denies swollen glands Psychiatric: Denies depression or anxiety Family History: Family History: Non-contributor to presentation Current Medications: Current Meds: See [facility] meds. Allergies: Allergies: Allergies Coded Allergies Type Severity Reaction Last Updated Verified adhesive tape Allergy Intermediate 01/02/21 Yes fentanyl Allergy Unknown 01/02/21 Yes sulfamethoxazole Allergy Unknown 01/02/21 Yes trimethoprim Allergy Unknown 01/02/21 Yes vancomycin Allergy Unknown 01/02/21 Yes Physical Exam: PE: Constitutional: Complaints of acute distress, non-toxic appearance. [] HENT: Normocephalic, atraumatic, bilateral external ears normal, oropharynx moist, no oral exudates, nose normal. [] Eyes: PERRLA, EOMI, conjunctiva normal, no discharge. [] Neck: Normal range of motion, no tenderness, supple, no stridor. [] Cardiovascular:Heart rate regular rhythm, no murmur [] Lungs & Thorax: Bilateral breath sounds equat at apexes on auscultation [] Abdomen: Bowel sounds hyperative soft, epigasgtric tenderness, no masses, no pulsatile masses. []Old surgery scars. Rebound to epigastric area. Obese. Skin: Warm, dry, no erythema, no rash. [] Back: No tenderness, no CVA tenderness. [] Extremities: No tenderness, no cyanosis, no clubbing, ROM intact, no edema. No psoas sign. No cording appreciated. Neurologic: Alert and oriented X 3, normal motor function, normal sensory function, no focal deficits noted. [] Psychologic: Affect anxious, judgement normal, mood normal. [] EKG: EKG: My interpretation EKG shows a sinus rhythm at 86 bpm. No findings of acute STEMI of contralateral changes. No acute morphology. Time of EKG is 1940 hrs. [] Radiology/Procedures: Radiology/Procedures: [address] [address] IMAGING REPORT Signed PATIENT: BRINA CASTANON AACCOUNT: [id number] : 1985 LOCATION: ER AGE: 36 SEX: F EXAM STATUS: REG ER ORD. PHYSICIAN: LAVELL ANTHONY MD REASON: OMNI 240,30ML PO.OMNI 300,75ML IV.ABD pain,HX pancreatitis PROCEDURE: CT ABD PELV W/ORAL&IV CONTRAST CT abdomen and pelvis with contrast PQRS statement: CT scans at this facility use dose reduction including either automated exposure control, iterative reconstructions, and /or weight based radiation dosing via mA and kV modification when appropriate to reduce radiation dose to as low as reasonably achievable. HISTORY: Abdominal pain, pancreatitis Contrast: 75 mL Omnipaque 300 intravenous contrast and oral contrast. COMPARISON: CT abdomen January 03, 2020. Abdomen findings: There is a TIPS from the right portal vein to the right he patic vein to the IVC with patent contrast enhancement. Splenomegaly craniocaudal length 15 cm. There is likely mild hepatomegaly with enlargement of the left hepatic lobe. Small focus of hyperdensity along the surface of the anterior right hepatic lobe image 25 is stable may be small focus of fluid. Cholecystectomy. Kidneys and adrenals normal. 3 mm left lower pole calculus. Numerous pancreatic calcifications, there is dilation of the pancreatic duct in the body and tail the pancreas with a diameter of 5 mm with abrupt narrowing at the origin of the pancreas related to obstructing stricture, no discrete mass lesion evident. The pancreas is normal. No obstruction or inflammation GI tract. There is mild enlarged peripancreatic lymph nodes largest on image 39 measuring 1.5 x 1.0 cm. There may be some mild groundglass edema surrounding the head of the pancreas as well. Bones unremarkable. Lung bases unremarkable. Pelvis findings: Uterus, ovaries, bladder, rectum and bones are normal. No pelvic fluid or adenopathy. IMPRESSION: 1. Acute on chronic pancreatitis with numerous calcifications of the gland and mild edema. There is dilation of the pancreatic duct with a diameter of 5 mm at the body and tail of the pancreas with abrupt narrowing of the duct at the head of pancreas suggesting a stricture. No obvious mass lesion is evident. There is mild peripancreatic adenopathy. 2. Appendix is normal. Electronically signed by: Aston Hutchinson MD (07/20/2021 11:19 PM) [facility] [place]CTATED AND SIGNED BY: ASTON HUTCHINSON MD DATE: 07/20/212310 CC: DANY PEREIRA MD; LAVELL ANTHONY MD ~ [][address] [place] [address] IMAGING REPORT Signed PATIENT: BRINA CASTANON AACCOUNT: [id number] : 1985 LOCATION: ER AGE: 36 SEX: F EXAM STATUS: REG ER ORD. PHYSICIAN: LAVELL ANTHONY MD REASON: n/v, pancreatitis PROCEDURE: ACUTE ABDOMEN SERIES Exam: Acute abdominal series INDICATION: Nausea vomiting, pancreatitis TECHNIQUE: Frontal view of the chest with upright and supine views of the abdomen Comparisons: None FINDINGS: The cardiomediastinal silhouette and pulmonary vessels are within normal limits. The lung and pleural spaces are clear. Air and stool are noted throughout the colon to level the rectum in a nonobstructive bowel gas pattern. No suspicious masses or calcifications. Visualized osseous structures are unremarkable. IMPRESSION: 1. No acute cardiopulmonary process. 2. Nonobstructive bowel gas pattern Electronically signed by: Maliha Sheldon MD (07/20/2021 8:38 PM) [facility] DICTATED AND SIGNED BY: MALIHA SHELDON MD DATE: 07/20/212029 CC: DANY PEREIRA MD; LAVELL ANTHONY MD ~ Heart Score: C/O Chest Pain: N/A HEART Score for Chest Pain: HEART Score for Chest Pain Response (Comments) Value History Slighlty/Non-Suspicious 0 ECG Normal 0 Age < 45 0 Risk Factors No Risk Factors 0 Troponin < Normal Limit 0 Total 0 Risk Factors: Risk Factors: DM, Current or recent (<one month) smoker, HTN, HLP, family history of CAD, obesity. Risk Scores: Score 0 - 3: 2.5% MACE over next 6 weeks - Discharge Home Score 4 - 6: 20.3% MACE over next 6 weeks - Admit for Clinical Observation Score 7 - 10: 72.7% MACE over next 6 weeks - Early Invasive Strategies Course & Med Decision Making: Course & Med Decision Making Pertinent Labs and Imaging studies reviewed. (See chart for details) Pt. requesting compazine - states Itzel never works for her. 2020 hrs. Awaiting NG- for contrast placmement. NG placed- Lavagne no gross blood. Some blood from Lt. nasal. NG removed pt. refused leave in for contrast. Min. blood fresh form Lt nasal bleeding. Tx with [place] Afrin and Cocaine Impression: 1. Acute Gastroenteritis 2. Acute on Chronic Pancreatitis 3. DM - Glucose 448- 117 repeat 4. Thrombocytopenia 83 5 Marijuana use. [] Dragon Disclaimer: Dragon Disclaimer: This electronic medical record was generated, in whole or in part, using a voice recognition dictation system. Departure Departure: Referrals: DANY PEREIRA MD (PCP) Scripts Famotidine (PEPCID) 20 Mg Tablet 20 MG PO BID for pancreatitis for 30 Days, #60 TAB Prov: LAVELL ANTHONY MD 07/21/21 Prochlorperazine Maleate (Compazine) 10 Mg Tablet 10 MG PO QIDPRN PRN for nv, #30 TAB Prov: LAVELL ANTHONY MD 07/21/21 Dragon Disclaimer This chart was dictated in whole or in part using Voice Recognition software in a busy, high-work load, and often noisy Emergency Department environment. It may contain unintended and wholly unrecognized errors or omissions. LAVELL ANTHONY MD Jul 20, 2021 19:24
[2021-07-20] MEDS ORDERED: MORPHINE SULFATE 10 MG/ML SYRINGE. SQ ONE (19:30)
[2021-07-20] MEDS ORDERED: FAMOTIDINE 20 MG/2 ML VIAL IVP ONE (19:30)
[2021-07-20] MEDS ORDERED: MAGNESIUM HYDROXIDE 2,400 MG/30 ML ORAL.SUSP. PO ONE (19:30)
[2021-07-20] MEDS ORDERED: ONDANSETRON PF 4 MG/2 ML VIAL. IVP ONE (19:30)
[2021-07-20] MEDS ORDERED: IV RINGERS SOLUTION,LACTATED 1,000 ML IV SCH (19:30)
--- NOTE | 2021-07-20 19:52 | EKG ---
[address] [address] Test Date: 2021-07-20 Test Time: 19:40:26 Pat Name: OPHELIA CASTANON Department: Room: Gender: F Picker / Packer: : 1985 Requested By: LAVELL ANTHONY Order Number: [id number] Reading MD: Jose Julian Measurements Intervals [place] Rate: 86 P: 19 WA: 144 QRS: 1 QRSD: 94 T: 25 QT: 368 QTc: 443 Interpretive Statements SINUS RHYTHM NO SPECIFIC ECG ABNORMALITIES RI6.01 No previous ECG available for comparison Electronically Signed On 07-23-2021 15:14:38 CDT by Jose Julian
[2021-07-20] MEDS ORDERED: IOHEXOL 300 MG/ML 75 ML VIAL. IV ONE (20:00)
[2021-07-20 20:13] LABS: BARBITURATES NEG (NEG); BENZODIAZEPINES NEG (NEG); CANNABINOIDS POS (NEG); COCAINE NEG (NEG); METHADONE NEG (NEG); OPIATES NEG (NEG); PHENCYCLIDINE NEG (NEG)
[2021-07-20 20:18] LABS: AMPHETAMINE/METHAMPHETAMINE NEG (NEG)
[2021-07-20 20:23] LABS: CLARITY,URINE CLEAR; COLOR,URINE YELLOW; GLUCOSE,URINE >=1000 mg/dL (NEG); NITRITE,URINE NEG (NEG); UROBILINOGEN,URINE 0.2 mg/dL (0.2 mg/dL)
[2021-07-20 20:24] LABS: BACTERIA,URINE 0 /HPF (0-FEW)
[2021-07-20] MEDS ORDERED: IOHEXOL 240 MG/ML 50ML VIAL. ONE (20:25)
[2021-07-20] MEDS ORDERED: PROCHLORPERAZINE 10 MG/2 ML VIAL. IV ONE (20:30)
[2021-07-20] MEDS ORDERED: diphenhydrAMINE 50 MG/ML VIAL IVP ONE (20:30)
--- NOTE | 2021-07-20 20:40 | RAD ---
Exam: Acute abdominal series INDICATION: Nausea vomiting, pancreatitis TECHNIQUE: Frontal view of the chest with upright and supine views of the abdomen Comparisons: None FINDINGS: The cardiomediastinal silhouette and pulmonary vessels are within normal limits. The lung and pleural spaces are clear. Air and stool are noted throughout the colon to level the rectum in a nonobstructive bowel gas patter n. No suspicious masses or calcifications. Visualized osseous structures are unremarkable. IMPRESSION: 1. No acute cardiopulmonary process. 2. Nonobstructive bowel gas pattern Electronically signed by: Maliha Perdue MD (07/20/2021 8:38 PM) [facility]
[2021-07-20] MEDS ORDERED: OXYMETAZOLINE 0.05% NASAL SPRAY 30ML BOTTLE. NS ONE (20:45)
[2021-07-20] MEDS ORDERED: COCAINE 4% TOPICAL SOLUTION. TP ONE (20:45)
[2021-07-20 20:55] LABS: BASO % 1 % (0-3); EOS % 0 % (0-3); HEMOGLOBIN 13.4 g/dL (12.0-15.5); LYMPH # 0.8 x10^3/uL (1.0-4.8); LYMPH % 27 % (24-48); MEAN CORPUSCULAR HEMOGLOBIN 29 pg (25-35); MEAN CORPUSCULAR HGB CONC 33 g/dL (31-37); MEAN CORPUSCULAR VOLUME 86 fL (79-100); MONO # 0.3 x10^3/uL (0.0-1.1); MONO % 9 % (0-9); NEUT # 1.9 x10^3uL (1.8-7.7); NEUT % 63 % (31-73); PLATELET COUNT 83 x10^3/uL (140-400); RED BLOOD COUNT 4.64 x10^6/uL (3.50-5.40); RED CELL DISTRIBUTION WIDTH 13.6 % (11.5-14.5); WHITE BLOOD COUNT 3.1 x10^3/uL (4.0-11.0)
[2021-07-20 21:04] LABS: ANION GAP 10 (6-14); BLOOD UREA NITROGEN 7 mg/dL (7-20); CALCIUM 9.9 mg/dL (8.5-10.1); CARBON DIOXIDE 25 mmol/L (21-32); CHLORIDE 100 mmol/L (98-107); CREATININE 0.9 mg/dL (0.6-1.0); GFR 70.8; GLUCOSE 448 mg/dL (70-99); POTASSIUM 3.4 mmol/L (3.5-5.1); SODIUM 135 mmol/L (136-145)
[2021-07-20 21:10] LABS: INFLUENZA A PATIENT NEGATIVE (NEGATIVE); INFLUENZA B PATIENT NEGATIVE (NEGATIVE)
[2021-07-20 21:19] LABS: ALBUMIN 3.3 g/dL (3.4-5.0); ALK PHOS 262 U/L (46-116); ALT (SGPT) 48 U/L (14-59); AST (SGOT) 44 U/L (15-37); DIRECT BILIRUBIN 0.1 mg/dL (0.0-0.2); LIPASE 62 U/L (73-393); TOTAL BILIRUBIN 0.3 mg/dL (0.2-1.0); TOTAL PROTEIN 7.8 g/dL (6.4-8.2)
[2021-07-20 21:24] LABS: % EOS 1 % (0-5); % LYMPHS 33 % (24-48); % MONOS 5 % (0-10); % SEGS 61 % (35-66); PLT ESTIMATE DECREASED (ADEQUATE)
[2021-07-20] MEDS ORDERED: IV NORMAL SALINE 1,000ML 1,000 ML IV ONE (22:30)
[2021-07-20] MEDS ORDERED: INSULIN REGULAR 100 UNIT/ML 3ML VIAL. IV ONE (22:30)
--- NOTE | 2021-07-20 23:21 | RAD ---
CT abdomen and pelvis with contrast PQRS statement: CT scans at this facility use dose reduction including either automated exposure cont rol, iterative reconstructions, and /or weight based radiation dosing via mA and kV modification when appropriate to reduce radiation dose to as low as reasonably achievable. HISTORY: Abdominal pain, pancreatitis Contrast: 75 mL Omnipaque 300 intravenous contrast and oral contrast. COMPARISON: CT abdomen January 03, 2020. Abdomen findings: There is a TIPS from the right portal vein to the right hepatic vein to the IVC wit h patent contrast enhancement. Splenomegaly craniocaudal length 15 cm. There is likely mild hepatomeg capri with enlargement of the left hepatic lobe. Small focus of hyperdensity along the surface of the a nterior right hepatic lobe image 25 is stable may be small focus of fluid. Cholecystectomy. Kidneys a nd adrenals normal. 3 mm left lower pole calculus. Numerous pancreatic calcifications, there is dilat ion of the pancreatic duct in the body and tail the pancreas with a diameter of 5 mm with abrupt narr owing at the origin of the pancreas related to obstructing stricture, no discrete mass lesion evident . The pancreas is normal. No obstruction or inflammation GI tract. There is mild enlarged peripancrea tic lymph nodes largest on image 39 measuring 1.5 x 1.0 cm. There may be some mild groundglass edema surrounding the head of the pancreas as well. Bones unremarkable. Lung bases unremarkable. Pelvis findings: Uterus, ovaries, bladder, rectum and bones are normal. No pelvic fluid or adenopathy . IMPRESSION: 1. Acute on chronic pancreatitis with numerous calcifications of the gland and mild edema. There is d ilation of the pancreatic duct with a diameter of 5 mm at the body and tail of the pancreas with abru pt narrowing of the duct at the head of pancreas suggesting a stricture. No obvious mass lesion is ev ident. There is mild peripancreatic adenopathy. 2. Appendix is normal. Electronically signed by: José Hutchinson MD (07/20/2021 11:19 PM) [facility]
[2021-07-21] MEDS ORDERED: MORPHINE SULFATE 10 MG/ML SYRINGE. ONE (00:14)
[2021-07-21] MEDS ORDERED: MORPHINE SULFATE 10 MG/ML SYRINGE. SQ ONE (00:15)
[2021-07-21] MEDS ORDERED: PROCHLORPERAZINE 10 MG/2 ML VIAL. IV ONE (00:15)
[2021-07-21] MEDS ORDERED: PROC10TA57 PO (00:18)
[2021-07-21] MEDS ORDERED: FAMO-63 PO (00:18)
[2021-07-21 01:13] VITALS: BP 130/71
== END 2021-07-21 01:25 | disposition home or self-care (01) ==
LOC: ER 19:19
DX: K52.9 Noninfective gastroenteritis and colitis, unspecified (principal); K86.1 Other chronic pancreatitis; K85.90 Acute pancreatitis without necrosis or infection, unspecified; E11.9 Type 2 diabetes mellitus without complications; D69.6 Thrombocytopenia, unspecified; I10 Essential (primary) hypertension; F17.210 Nicotine dependence, cigarettes, uncomplicated; F12.90 Cannabis use, unspecified, uncomplicated; F10.20 Alcohol dependence, uncomplicated; Z20.822 Contact with and (suspected) exposure to COVID-19; Y90.0 Blood alcohol level of less than 20 mg/100 ml
CPT/HCPCS: 36415; 74022; 74177; 80048; 80076; 80307; 81001; 81025; 82150; 82553; 82947; 83690; 84484; 85007; 85025; 85610; 85730; 87428; 93005; 96361; 96372; 96374; 96375; 96376; 99285; G0480; J0780; J1200; J1815; J2270; J2405; J3490; J7030; J7120; Q9967

== ENCOUNTER → 2021-07-28 | Emergency (ER) | payer OTHER ==
[2021-07-21 01:13] VITALS: BP 130/71
[~2021-07-28] MED LIST changes: +FAMO-63 PO; +PROC10TA57 PO
== END | disposition left against medical advice (07) ==
LOC: ER 14:37
DX: R10.9 Unspecified abdominal pain (principal); R11.2 Nausea with vomiting, unspecified; R19.7 Diarrhea, unspecified; Z53.21 Procedure and treatment not carried out due to patient leaving prior to being seen by health care provider